=== PATIENT | male | born 1955 | race Hispanic/Latino ===

== ENCOUNTER 2018-12-18 00:03 | Inpatient (IN) | payer MEDICAID, OTHER ==
[2018-12-18 00:46] LABS: #Basophils 0.1 thou/uL (0.0-0.2); #Eosinphils 0.1 thou/uL (0.0-0.7); #Lymphocytes 0.6 thou/uL (1.20-3.40); #Monocytes 0.2 thou/uL (0.11-0.59); #Neutrophils 7.5 thou/uL (1.40-6.50); %Basophils 0.6 % (0.0-1.0); %Eosinophils 1.1 % (0.0-10.0); %Lymphocytes 6.8 % (21.0-51.0); %Monocytes 2.8 % (0.0-10.0); %Neutrophils 88.7 % (42.0-75.0); Hemoglobin 16.1 g/dL (14.0-18.0); Mean Corpuscular HGB CONC 33.5 g/dL (32.0-36.0); Mean Corpuscular Hemoglobin 32.2 pg (27.0-31.0); Mean Corpuscular Volume 96.2 fL (78.0-98.0); Mean Platelet Volume 6.5 fL (7.4-10.4); Platelet Count 341 thou/uL (130-400); RBC Distribution Width 11.8 % (11.5-14.5); Red Blood Cell (RBC) Count 4.99 mill/uL (4.70-6.10); White Blood Cell (WBC) Count 8.4 thou/uL (4.8-10.8)
[2018-12-18] MEDS ORDERED: Morphine 4 MG/ML VIAL ONE (01:10)
[2018-12-18] MEDS ORDERED: Ondansetron PF 4 MG/2 ML Vial ONE (01:10)
[2018-12-18 01:16] LABS: ALT (SGPT) 19 U/L (8-55); AST (SGOT) 16 U/L (5-34); Acetaminophen Less than 6.0 mcg/mL (10.0-30.0); Albumin 4.3 g/dL (3.4-4.8); Alcohol Less than 10 mg/dL (Less than 10); Alkaline Phosphatase 78 U/L (40-150); Anion Gap 19 mmol/L (10-20); BUN (Urea Nitrogen) 23 mg/dL (8.4-25.7); Bilirubin, Total 0.6 mg/dL (0.2-1.2); Calc. Creatinine Clearance 0 mL/min (70-130); Carbon Dioxide 16 mmol/L (23-31); Chloride 95 mmol/L (98-107); Estimated GFR-MDRD 45; Globulin 2.4 g/dL (2.4-3.5); Glucose 181 mg/dL (80-115); Magnesium 2.1 mg/dL (1.6-2.6); Potassium 4.1 mmol/L (3.5-5.1); Protein, Total 6.7 g/dL (5.8-8.1); Salicylate Less than 8.0 mg/dL (15.0-30.0); Sodium 126 mmol/L (136-145)
[2018-12-18] MEDS ORDERED: Piperacillin/Tazobactam 3.375 GM VIAL ONE (02:17)
[2018-12-18] MEDS ORDERED: Fentanyl 100 MCG/2 ML VIAL ONE ×3 (03:33→05:10)
[2018-12-18] MEDS ORDERED: Midazolam HCl 2 mg/2 ml Vial ONE (03:33)
--- NOTE | 2018-12-18 04:04 | HP ---
CHIEF COMPLAINT: Abdominal pain. HISTORY OF PRESENT ILLNESS: This is a 63-year-old male with bipolar schizophrenia, in the care of his niece, recently moved here in a month or two from [place] with sudden onset of epigastric pain approximately at 9:00 p.m. after eating dinner, associated with nausea and no vomiting. PAST MEDICAL HISTORY: Significant for bipolar and schizophrenia. PAST SURGICAL HISTORY: None. MEDICATIONS: 1. Citalopram. 2. . 3. Hydroxyzine. ALLERGIES: NO KNOWN DRUG ALLERGIES. SOCIAL HISTORY: He lives with his niece, who is an RN. He smokes one-half pack per day. No alcohol. FAMILY HISTORY: Diabetes and hypertension. PHYSICAL EXAMINATION: VITAL SIGNS: He is afebrile. Pulse 107, blood pressure 144/63. GENERAL: Obese male, sitting up. HEENT: No jaundice. LUNGS: Clear. HEART: Regular rate and rhythm. ABDOMEN: Obese, soft, somewhat distended. He is very tender in the central and upper abdomen with peritoneal signs. EXTREMITIES: Unremarkable. LABORATORY DATA: White count is 8.4, H and H are 16 and 48, platelet count 341. Electrolytes show sodium 126, potassium 4.1, chloride 95, creatinine 1.57, glucose 181. Liver function tests are normal. He had a CT scan of the abdomen showing extensive free air with inflammation of the duodenal bulb consistent with possible perforated ulcer, but he also has some thickening of the small bowel loops. ASSESSMENT: Perforated viscus. PLAN: Exploratory laparotomy. Job ID: [id number]
[2018-12-18] MEDS ORDERED: PHENYLEPHRINE-NS 100 MCG/ML 10 ML SYRINGE ONE ×2 (04:05→14:52)
[2018-12-18] MEDS ORDERED: Phenylephrine HCL 40 MG in Sodium Chloride 0.9% 250 ML 250 ML IV SCH (04:30)
[2018-12-18] MEDS ORDERED: SUGAMMADEX SODIUM 200 MG/2 ML VIAL ONE (04:48)
[2018-12-18] MEDS ORDERED: Morphine 4 MG/ML VIAL SLOW IVP PRN (04:56)
[2018-12-18] MEDS ORDERED: Insulin Regular 300 UNITS/3 ML VIAL SC PRN (04:56)
[2018-12-18] MEDS ORDERED: Dextrose 50% Abboject 50 ML SYRINGE SLOW IVP PRN (04:56)
[2018-12-18] MEDS ORDERED: Ondansetron PF 4 MG/2 ML Vial IVP PRN (04:56)
[2018-12-18] MEDS ORDERED: Promethazine HCl 25 MG/ML VIAL IM PRN ×2 (04:56→05:04)
[2018-12-18] MEDS ORDERED: hydrALAZINE 20 MG/ML VIAL SLOW IVP PRN (04:56)
[2018-12-18] MEDS ORDERED: Ondansetron HCl/PF 4 MG/2 ML Vial IVP PRN (05:04)
[2018-12-18] MEDS ORDERED: Promethazine HCl 25 MG/ML VIAL SLOW IVP PRN (05:04)
[2018-12-18 06:24] VITALS: BMI 32.3
[2018-12-18] MEDS: Sodium Chloride 0.9% 1,000 ML IV SCH ×5 (06:45→21:01)
[2018-12-18] MEDS: Piperacillin/Tazobactam 3.375 GM in Sodium Chloride 0.9% 100 ML IVPB SCH ×4 (06:48→23:58)
--- NOTE | 2018-12-18 07:06 | RAD ---
SINGLE VIEW CHEST: HISTORY: Shortness of breath. FINDINGS: Single view of the chest show normal sized cardiomediastinal silhouette. There is no evidence of cons olidation, mass, or pleural effusion. The bones are unremarkable. IMPRESSION: No evidence of acute cardiopulmonary disease. POS: C
[2018-12-18] MEDS: metroNIDAZOLE 500 MG in Premix Bag 1 BAG IVPB SCH ×3 (07:12→21:00)
[2018-12-18 07:49] LABS: Hemoglobin 14.2 g/dL (14.0-18.0); Mean Corpuscular Hemoglobin 31.8 pg (27.0-31.0); Mean Corpuscular Volume 99.6 fL (78.0-98.0); Mean Platelet Volume 6.4 fL (7.4-10.4); Platelet Count 279 thou/uL (130-400); Red Blood Cell (RBC) Count 4.45 mill/uL (4.70-6.10); White Blood Cell (WBC) Count 1.9 thou/uL (4.8-10.8)
[2018-12-18 08:07] LABS: Anion Gap 14 mmol/L (10-20); BUN (Urea Nitrogen) 27 mg/dL (8.4-25.7); Calc. Creatinine Clearance 62 mL/min (70-130); Calcium 8.3 mg/dL (7.8-10.44); Carbon Dioxide 13 mmol/L (23-31); Chloride 104 mmol/L (98-107); Estimated GFR-MDRD 45; Glucose 99 mg/dL (80-115); Potassium 5.4 mmol/L (3.5-5.1); Sodium 126 mmol/L (136-145)
[2018-12-18 08:32] LABS: Band 46 % (5-11); Lymphocytes 36 % (21-51); MDiff Complete? YES; Monocytes 2 % (0-10); Neutrophil 16 % (42-75); Nucleated RBC 1 % (0); Platelet Morphology Comment Appears Adequate; Polychromasia SLIGHT = 2-3 cells (100X) (0-2/hpf); Reflex for Review?? YES
--- NOTE | 2018-12-18 08:49 | CON ---
DATE OF CONSULTATION: HISTORY OF PRESENT ILLNESS: A 63-year-old gentleman, unable to get much history, came to the ER yesterday with abdominal pain. He apparently walks in the hospital earlier and give history stating that having pain for a period of time. He has underlying bipolar, schizophrenic disorder. He is also apparently mentally retarded. He was found to have acute abdomen. He was taken to surgery last night by General Surgery and found to have a pneumoperitoneum, perforated peptic ulcer. Appropriate surgical intervention was done. He is now postop in the ICU, off vent. Denies any pain or discomfort and whatever little information we get, he clearly appears to be in no acute distress. PAST MEDICAL HISTORY: Bipolar, schizophrenia, mental retardation. PAST SURGICAL HISTORY: Previous surgeries, unknown. MEDICATIONS: Chronic medication apparently has included; 1. Citalopram 40 once a day. 2. Benztropine 2 mg 2 times a day. 3. Hydroxyzine 10 mg twice a day. ALLERGIES: NONE. SOCIAL HISTORY: Tobacco unknown. REVIEW OF SYSTEMS: Unremarkable. PHYSICAL EXAMINATION: VITAL SIGNS: Sats are 90% on room air, temperature 97, blood pressure , and respiratory rate 18. CHEST: Revealed no wheezing or crackles. CARDIAC: Normal S1 and S2. No gallops. ABDOMEN: No masses. LABORATORY STUDIES: White count 1.9, H and H 14 and 44, and platelet count is normal. BUN and creatinine are 27 and 1.58, sodium 126. TSH is full. Albumin is 4.3. ASSESSMENT: 1. Status post perforated peptic ulcer, status post lap. 2. Azotemia. 3. Electrolyte imbalance. 4. Bipolar, schizophrenia, mental retardation. PLAN: Continue normal saline 125 per hour, broad-spectrum antibiotics initiated, Zosyn and culture report. We will follow while in the ICU. Consultation note, 70 minutes, 50% direct patient care. Job ID: [id number]
[2018-12-18] MEDS ORDERED: Famotidine/PF 20 mg/2ml Vial SLOW IVP SCH (09:00)
[2018-12-18] MEDS ORDERED: Pantoprazole 40 MG VIAL IVP SCH (09:00)
--- NOTE | 2018-12-18 09:26 | CT ---
PRELIMINARY REPORT/[facility]/EMERGENTY AFTER-HOURS PROCEDURE CT Abdomen and Pelvis With Contrast EXAM DATE/TIME: 12/18/2018 1:48 AM CLINICAL HISTORY: 63 years old, male; Pain; Abdominal pain; Patient HX: Er 3; PT family called them due SOB. Ems report s PT running tachy. PT has been complaining of abdominal pain (generalized) today. Denies any vomit. States he has been running back and forth to the bathroom . ; additional info: *pt combative for scan TECHNIQUE: Axial computed tomography images of the abdomen and pelvis with intravenous contrast. Coronal reforma tted images were created and reviewed. COMPARISON: No relevant prior studies available. FINDINGS: Lower thorax: No acute findings. ABDOMEN: Liver: Normal. No mass. Gallbladder and bile ducts: Normal. No calcified stones. No ductal dilation. Pancreas: Normal. No ductal dilation. Spleen: Normal. No splenomegaly. Adrenals: Normal. No mass. Kidneys and ureters: Right renal cyst. Kidneys otherwise unremarkable. Stomach and bowel: Inflammatory thickening of the wall of the stomach and duodenal bulb, consistent w ith gastritis and proximal duodenitis. Focus of gas at the periphery of the pylorus may be extralumin al and raises the possibility of perforated duodenal ulcer. Mildly prominent lymph node adjacent to the duodenal bulb may also support the presence of a chronic ulcer. Diffuse inflammatory thickening of the wall of the jejunum and ileum, consistent with enteritis. Colon is unremarkable. Appendix: Normal appendix. PELVIS: Bladder: Unremarkable as visualized. Reproductive: Unremarkable as visualized. ABDOMEN and PELVIS: Intraperitoneal space: Large volume free nondependent pneumoperitoneum compatible perforated viscus. Moderate volume ascites. No pneumoperitoneum or abscess. Bones/joints: No acute fracture. No dislocation. Soft tissues: Unremarkable. Vasculature: No pneumatosis or portal/mesenteric venous gas. SMV and SMA are patent as far as can be traced. Lymph nodes: See Stomach And Bowel Finding. Other findings: 2.6 cm AAA. No rupture. IMPRESSION: 1. Large volume free nondependent pneumoperitoneum compatible with perforated viscus. 2. Inflammatory thickening of the wall of the stomach and duodenal bulb, consistent with gastritis an d proximal duodenitis. Focus of gas at the periphery of the pylorus may be extraluminal and raises th e possibility of perforated duodenal ulcer. Mildly prominent lymph node adjacent to the duodenal bulb may also support the presence of a chronic ulcer. 3. Diffuse inflammatory thickening of the wall of the jejunum and ileum, consistent with enteritis. 4. Moderate volume ascites. Findings discussed with WALKER CASILLAS MD at time of interpretation. Thank you for allowing us to participate in the care of your patient. Dictated and Authenticated by: Albino Masters MD 12/18/2018 2:40 AM Central Time ([place] & [place]) FINAL REPORT EMERGENT AFTER HOURS CT ABDOMEN AND PELVIS WITH CONTRAST: FINDINGS/IMPRESSION: I agree with the findings and impression given in the preliminary report, per [facility] physician. There is a moderate amount of free air and free fluid in the abdomen and pelvis. This is suggestive of a perforated discus. The exact cause of the perforation is uncertain. However, there is thickeni ng of the wall of the stomach and jejunum. In addition, bubbles of air are seen near the duodenum. A perforated duodenal or gastric ulcer is a possibility.
--- NOTE | 2018-12-18 09:28 | CT ---
PRELIMINARY REPORT/[facility]/EMERGENTY AFTER-HOURS PROCEDURE Addendum created by Albino Masters MD on 12/18/2018 2:51 AM Central Time ([place] & [place]) Findings discu ssed with WALKER CASILLAS MD at time of interpretation. Initial Report created on 12/18/2018 2:24 AM Central Time ([place] & [place]) EXAM: CT Angiography Chest With Contrast EXAM DATE/TIME: 12/18/2018 1:48 AM CLINICAL HISTORY: 63 years old, male; Signs and symptoms; Shortness of breath; Patient HX: Er 3; PT family called them due SOB. PT has history of schizophrenia. Unable to obtain history from patient at this time. Ems rep orts PT running tachy TECHNIQUE: Axial computed tomographic angiography images of the chest with intravenous contrast using CT angiogr aphy protocol. MIP reconstructed images were created and reviewed. COMPARISON: No relevant prior studies available. FINDINGS: Pulmonary arteries: Normal. No pulmonary emboli. Aorta: Normal. No aortic aneurysm. No aortic dissection. Lungs: Normal. No consolidation. No masses. Pleural space: Normal. No pneumothorax. No pleural effusion. Heart: Trace pericardial effusion. Kidneys and ureters: Right renal cyst. Stomach and bowel: There is inflammatory thickening of the wall of the distal stomach and visualized portion of the duodenal bulb, compatible with gastritis and duodenitis and, in the setting of pneumop eritoneum, suspicious for the possibility of a perforated pyloric or duodenal ulcer. Intraperitoneal space: Incompletely visualized large volume pneumoperitoneum. Incompletely visualized at least moderate volume ascites. Lymph nodes: Unremarkable. No enlarged lymph nodes. Bones/joints: Unremarkable. No acute fracture. Soft tissues: Unremarkable. IMPRESSION: 1. Incompletely visualized large volume pneumoperitoneum indicating perforated viscus. 2. There is inflammatory thickening of the wall of the distal stomach and visualized portion of the d uodenal bulb, compatible with gastritis and duodenitis and, in the setting of pneumoperitoneum, suspicious for the possibility of a perforated pyloric or duodenal ulcer.. 3. Incompletely visualized at least moderate volume ascites. 4. Trace pericardial effusion. Thank you for allowing us to participate in the care of your patient. Dictated and Authenticated by: Albino Masters MD 12/18/2018 2:24 AM Central Time ([place] & [place]) FINAL REPORT EMERGENT AFTER HOURS CTA CHEST: TECHNIQUE: Multiple contiguous axial images were obtained in a CTA of the chest with contrast, per pulmonary emb olism protocol, and 3D oblique MIP reformats and direct coronal reformats were performed. FINDINGS/IMPRESSION: I agree with the findings and impression given in the preliminary report, per [facility] physician: 1. No evidence of pulmonary thromboembolism. 2. Pneumoperitoneum. Please see abdominal CT for further discussion.
--- NOTE | 2018-12-18 09:35 | OP ---
DATE OF PROCEDURE: 12/18/2018 PREOPERATIVE DIAGNOSIS: Perforated viscus. PROCEDURES PERFORMED: Exploratory laparotomy, closure of duodenal ulcer with omental patch, and lysis of adhesions. INDICATIONS: A 63-year-old male with schizophrenia and bipolar, who was doing fine until about 9 p.m. when he had developed severe upper abdominal pain nausea, no vomiting. He had a CT scan showing extensive free air, some thickened small bowel, possible air near the duodenum. FINDINGS: 1500 mL of purulent peritoneal fluid, 1.5 cm perforated duodenal ulcer anterior and slightly superior. DESCRIPTION OF PROCEDURE: After informed consent from his niece who had power of managing attorney, the patient was taken to the operating room and given general endotracheal anesthesia, placed in supine position. Abdomen was prepped and draped in the usual fashion. An upper midline incision was performed. Subcu was divided sharply and the fascia incised with a 10 blade. The abdomen was full of purulent peritoneal fluid, 1500 mL of this cloudy peritoneal fluid was removed with the pool sucker, after cultures were obtained, then the abdomen was explored. The colon looked fine. Small bowel did not appear to be inflamed. The stomach was inspected, and in compressing the stomach, we can see the additional fluid coming out, and then looking at the duodenum, there was a large 1.5 cm perforation anterior and superior. This perforation was closed transversely with interrupted 0 Vicryl suture. Then, the abdomen was thoroughly irrigated. There were couple of band adhesions that had to be lysed for potential small bowel obstructions in the future, 6 L of fluid used to completely irrigate the abdominal cavity, irrigation fluid removed, hemostasis assured, then the omentum was taken up to the repair and tied down with the sutures that were already in place to create a patch. Then, the NG tube was confirmed. The fascia was closed with a running looped #1 PDS. The subcu irrigated. The skin was closed with skin donita. Sterile bandage applied. The patient tolerated the procedure well and transferred to Recovery in fair condition. Job ID: [id number]
[2018-12-18] MEDS ORDERED: Haloperidol Lactate 5 MG/ML VIAL SLOW IVP PRN (09:45)
[2018-12-18 09:51] LABS: Hemoglobin 13.7 g/dL (14.0-18.0)
[2018-12-18] MEDS ORDERED: ISOVUE-370 76%-LOCM 1 ML ONE (09:57)
[2018-12-18] MEDS ORDERED: Sodium Chloride 0.9% 1,000 ML IV SCH ×2 (10:15→11:45)
--- NOTE | 2018-12-18 10:31 | CON ---
DATE OF CONSULTATION: ATTENDING PHYSICIAN: Dawood Bishop M.D. REASON FOR ADMISSION: Severe abdominal pain and perforated viscus. REASON FOR CONSULTATION: For the aid in medical management. HISTORY OF PRESENT ILLNESS: Mr. Latham is a pleasant 63-year-old gentleman who has fairly severe mental retardation. He was admitted to the hospital after he developed a sudden episode of severe epigastric pain after eating dinner. He was brought to the emergency room and had a CT scan performed and it was found that he had significant pneumoperitoneum and some thickening of the stomach as well as the small bowel. General Surgery was consulted and the patient underwent an emergent exploratory laparotomy. It was found that he had a duodenal ulcer with perforation. He has undergone laparoscopic closure of the duodenal ulcer with an omental patch as well as some lysis of adhesions. He has been placed in the ICU and we have been consulted to aid in medical management. Currently, the patient is awake. He has an NG tube in place. He denies having any significant complaints. When asked, if he is having abdominal pain, he says the pain is better. There is no nausea, no vomiting. No chest pain or shortness of breath. REVIEW OF SYSTEMS: All systems were reviewed and are negative except for that mentioned in the history of present illness. PAST MEDICAL HISTORY: Significant for schizophrenia and bipolar disorder as well as mental retardation. PAST SURGICAL HISTORY: Unknown. ALLERGIES: NO KNOWN DRUG ALLERGIES. FAMILY HISTORY: Significant for diabetes mellitus and hypertension. SOCIAL HISTORY: He lives with his niece, who is a an RN here at [facility]. He is a nondrinker. He it is reported he smokes about a half a pack of cigarettes daily. CURRENT MEDICATIONS: Include: 1. Citalopram 40 mg daily. 2. Benztropine 2 mg daily. 3. Hydroxyzine 10 mg twice daily. 4. Invega 117 mg IM every 30 days. PHYSICAL EXAMINATION: GENERAL: He is alert and oriented. He is well developed and well nourished, and does not appear to be in any distress. VITAL SIGNS: Blood pressure was 92/52, heart rate 106, respiratory rate is 16. He is afebrile. HEENT: Pupils are equal, round, and reactive. Extraocular muscles are intact. His sclerae are anicteric. THROAT: There was no erythema. No exudates. NECK: No adenopathy, no bruits. Lungs: Clear to auscultation. There is no wheezing, no rales no rhonchi CARDIOVASCULAR: Heart rate slightly tachycardic, but regular. No murmurs, clicks or rubs. ABDOMEN: Obese. It is slightly distended. It is nontender to palpation and there is no rebound or guarding. No organomegaly. EXTREMITIES: There is no clubbing, cyanosis, no edema. NEUROLOGIC: The exam is nonfocal. LABORATORY DATA: His white blood cell count today is 1.9, hemoglobin 14.2, hematocrit is 44.3, and platelet count is 279, Neutrophils are currently pending. He has 46 bands. Sodium is 126, potassium is 5.4, CO2 is 13, BUN of 27, creatinine 1.58, glucose is 99. IMAGING: As previously mentioned, CT scan of the abdomen demonstrated pneumoperitoneum. He also had a CT angiogram of the chest, which was negative for PE. ASSESSMENT: This is a 63-year-old gentleman who presents with severe abdominal pain and was found to have a perforated duodenal ulcer. He is status post exploratory laparotomy with repair of a duodenal ulcer with an omental patch. Currently, the patient is awake and has few complaints. His abdominal pain appears to be controlled. With regard for medical management: 1. Schizophrenia and bipolar disorder. Currently the patient is n.p.o., so therefore his typical oral medications will be held. We will continue his Depo shot of Invega every 30 days and have p.r.n. Haldol and lorazepam available as needed. 2. Hyponatremia. This could be due to low volume or volume depletion. We will see, if this corrects with saline administration. If not, then we will get urine studies to help us differentiate the cause of the hyponatremia. 3. Duodenal ulcer. We will continue the Protonix b.i.d. Monitor his hemoglobin and hematocrit and consider gastrointestinal consultation. Given his history of bleeding, we will hold off on any deep venous thrombosis prophylaxis other than sequential compression devices. Job ID: [id number]
[2018-12-18] MEDS ORDERED: Norepinephrine 8 MG/250 ML BAG IVPB PRN (11:33)
[2018-12-18] MEDS: Pantoprazole 80 MG in Sodium Chloride 0.9% 100 ML IVP SCH (12:34)
[2018-12-18] MEDS ORDERED: Albumin 25% 25 GM/100 ML BOT IVPB SCH (13:00)
[2018-12-18] MEDS ORDERED: Lidocaine 1% PF 5 ML VIAL ONE (14:52)
[2018-12-18] MEDS ORDERED: Rocuronium Bromide 10 MG/ML (10ML VIAL) ONE (14:52)
[2018-12-18] MEDS ORDERED: Succinylcholine Chloride 20 MG/ML 10 ml SYRINGE FS ONE (14:52)
[2018-12-18] MEDS ORDERED: ePHEDrine 50 MG/ML VIAL ONE (14:52)
[2018-12-18] MEDS ORDERED: Glycopyrrolate 0.2 MG/ML 5 ML SYRINGE ONE (14:52)
[2018-12-18] MEDS: Enoxaparin Sodium 40 MG/0.4 ML SYRINGE SC SCH (21:01)
[2018-12-19] MEDS: Pantoprazole 80 MG in Sodium Chloride 0.9% 100 ML IVP SCH ×3 (00:01→20:04)
[2018-12-19] MEDS: Dextrose 5% in Water 1,000 ML IV PRN ×2 (00:07→18:26)
[2018-12-19 04:08] LABS: #Lymphocytes 0.6 thou/uL (1.20-3.40); #Monocytes 0.5 thou/uL (0.11-0.59); #Neutrophils 4.8 thou/uL (1.40-6.50); %Basophils 0.5 % (0.0-1.0); %Eosinophils 0.2 % (0.0-10.0); %Lymphocytes 9.8 % (21.0-51.0); %Monocytes 8.1 % (0.0-10.0); %Neutrophils 81.4 % (42.0-75.0); Hemoglobin 11.9 g/dL (14.0-18.0); Mean Corpuscular HGB CONC 32.9 g/dL (32.0-36.0); Mean Corpuscular Volume 97.4 fL (78.0-98.0); Mean Platelet Volume 6.5 fL (7.4-10.4); Platelet Count 244 thou/uL (130-400); Red Blood Cell (RBC) Count 3.72 mill/uL (4.70-6.10); White Blood Cell (WBC) Count 5.8 thou/uL (4.8-10.8)
[2018-12-19 04:34] LABS: ALT (SGPT) 28 U/L (8-55); AST (SGOT) 81 U/L (5-34); Albumin 3.4 g/dL (3.4-4.8); Alkaline Phosphatase 36 U/L (40-150); Anion Gap 8 mmol/L (10-20); BUN (Urea Nitrogen) 30 mg/dL (8.4-25.7); Bilirubin, Total 0.7 mg/dL (0.2-1.2); Calc. Creatinine Clearance 79 mL/min (70-130); Calcium 8.5 mg/dL (7.8-10.44); Carbon Dioxide 19 mmol/L (23-31); Chloride 109 mmol/L (98-107); Estimated GFR-MDRD 59; Globulin 1.9 g/dL (2.4-3.5); Glucose 87 mg/dL (80-115); Potassium 4.3 mmol/L (3.5-5.1); Protein, Total 5.3 g/dL (5.8-8.1); Sodium 132 mmol/L (136-145)
[2018-12-19] MEDS: Piperacillin/Tazobactam 3.375 GM in Sodium Chloride 0.9% 100 ML IVPB SCH ×4 (05:16→23:18)
[2018-12-19] MEDS: metroNIDAZOLE 500 MG in Premix Bag 1 BAG IVPB SCH ×3 (05:17→21:03)
[2018-12-19] MEDS: Sodium Chloride 0.9% 1,000 ML IV SCH ×4 (05:20→23:17)
--- NOTE | 2018-12-19 08:02 | PRG ---
DATE OF SERVICE: 12/19/2018 SUBJECTIVE: Mario Latham this morning is awake, alert, and responsive. He is less confused, less short of breath, less pain. Denies pain or discomfort. OBJECTIVE: VITAL SIGNS: Sats are 95% on 2 L, blood pressure is 149/71, respiratory rate 18, and pulse 80. CHEST: Decreased breath sounds. No wheezing. CARDIAC: Normal S1 and S2. No gallops. ABDOMEN: No masses. LABORATORY DATA: His creatinine is 1.24, decreased; sodium 132. White count 5000. Lytes are normal. IMPRESSION: 1. Status post lap, perforated viscus. 2. Hypertension, resolved. 3. Mental retardation. PLAN: Continue antibiotics. All cultures so far negative. Disposition as per Surgery. Job ID: [id number]
--- NOTE | 2018-12-19 09:31 | PRG ---
DATE OF SERVICE: 12/19/2018 SUBJECTIVE: The patient is feeling much better today. He is awake and hemodynamically, he is much more stable. He has required no further fluid boluses. OBJECTIVE: GENERAL: On examination, he is awake, alert, watching television, in no apparent distress. NG tube is in place, it has put out only about 60 mL of fluid. VITAL SIGNS: His temperature is 98, pulse 97, blood pressure 143/90, looks good. ABDOMEN: Soft and nondistended. Dressing is okay. : His urine output is 1470 for 24 hours. LABORATORY DATA: His white count 5.8, H and H of 11 and 36, and platelet count of 244. Electrolytes show BUN 30 and creatinine 1.24. ASSESSMENT: Doing well. PLAN: Transfer to the floor. Job ID: [id number]
[2018-12-19] MEDS ORDERED: MD-Gastroview 120 ML BOT ONE (10:16)
[2018-12-19] MEDS ORDERED: Labetalol HCl 100 MG/20 ML VIAL SLOW IVP PRN (11:20)
--- NOTE | 2018-12-19 11:31 | PDOC.PN ---
- Subjective Encounter Start Date: 12/19/18 Encounter Start Time: 11:29 Mr. Latham was seen today in follow-up of perforated duodenal ulcer. He is back from the upper GI series. He denies abdominal pain. He denies feeling nauseated. - Objective MAR Reviewed: Yes Vital Signs & Weight: Vital Signs (12 hours) Temp Pulse Ox 12/19/18 07:59 98.0 F 12/19/18 07:35 100 12/19/18 04:00 98.7 F 12/19/18 00:00 99.2 F Weight Weight 200 lb 6.403 oz Most Recent Monitor Data Heart Rate from ECG 105 NIBP 173/132 NIBP BP-Mean 145 Respiration from ECG 22 SpO2 100 I&O: 12/18/18 12/19/18 12/20/18 06:59 06:59 06:59 Intake Total 5808.1 0 Output Total 1770 435 Balance 4038.1 -435 Result Diagrams: 12/19/18 04:04 12/19/18 04:04 Additional Labs: Accuchecks 12/19/18 12/19/18 12/19/18 09:22 04:01 02:03 POC Glucose 85 96 89 12/19/18 12/18/18 12/18/18 00:04 22:10 15:57 POC Glucose 55 L* 65 L 62 L Phys Exam - Physical Examination HEENT: PERRLA Respiratory: no wheezing, no rales, no rhonchi, clear to auscultation bilateral Cardiovascular: RRR, no significant murmur, no rub Gastrointestinal: soft, non-tender, positive bowel sounds mildly distended Musculoskeletal: no edema, pulses present Dx/Plan (1) Schizophrenia Code(s): F20.9 - SCHIZOPHRENIA, UNSPECIFIED Status: Chronic (2) Elevated blood pressure reading Code(s): R03.0 - ELEVATED BLOOD-PRESSURE READING, W/O DIAGNOSIS OF HTN Status : Acute (3) Bipolar disorder Code(s): F31.9 - BIPOLAR DISORDER, UNSPECIFIED Status: Chronic (4) Duodenal ulcer with perforation Code(s): K26.5 - CHRONIC OR UNSPECIFIED DUODENAL ULCER WITH PERFORATION Status : Acute - Plan * Schizophrenia and Bipolar disorder- will re-start his home medications * Elevated blood pressure- will place him on PRN medications * Duodenal Ulcer with perforation- continue Protonix drip will in the ICU- change to BID once on the floor
--- NOTE | 2018-12-19 11:54 | RAD ---
GASTROGRAFFIN UPPER GI: HISTORY: Perforated duodenal ulcer, status post surgery. Evaluate for leak. COMPARISON: None. FINDINGS: The initial police cadet supine radiograph demonstrates midline skin donita. The nasogastric tube is in th e stomach. Nonspecific bowel gas pattern. The patient was administered a total of 50 mL of Gastrografin contrast. An additional 10 mL of steri le saline was administered, to flush out the Gastrografin in the NG tube. There is no evidence of le ak or perforation. IMPRESSION: No radiographic evidence of leak or perforation. POS: YESSICA
[2018-12-19] MEDS ORDERED: PALIPERIDONE PALMITATE 117 MG IM SCH (12:00)
[2018-12-19] MEDS: hydrALAZINE 20 MG/ML VIAL SLOW IVP PRN (12:02)
[2018-12-19] MEDS: hydrOXYzine 10 MG TAB PO SCH (20:04)
[2018-12-19] MEDS: Benztropine 1 MG TAB PO SCH (20:04)
[2018-12-19] MEDS: Enoxaparin Sodium 40 MG/0.4 ML SYRINGE SC SCH (20:05)
[2018-12-20] MEDS: Piperacillin/Tazobactam 3.375 GM in Sodium Chloride 0.9% 100 ML IVPB SCH ×4 (05:43→22:52)
[2018-12-20] MEDS: Sodium Chloride 0.9% 1,000 ML IV SCH ×4 (05:43→22:18)
[2018-12-20] MEDS: metroNIDAZOLE 500 MG in Premix Bag 1 BAG IVPB SCH ×3 (05:44→20:30)
[2018-12-20] MEDS: Citalopram 20 MG TAB PO SCH (07:49)
[2018-12-20] MEDS: hydrALAZINE 20 MG/ML VIAL SLOW IVP PRN (07:49)
--- NOTE | 2018-12-20 08:03 | PRG ---
DATE OF SERVICE: 12/20/2018 SUBJECTIVE: The patient states he is hungry, has not passed anything out of his bottom. OBJECTIVE: VITAL SIGNS: His temperature is 98.2, pulse 98, blood pressure 173/69. GENERAL: He is awake, alert. His wound is clean and dry. His abdomen is soft, nontender. ASSESSMENT: Doing well. PLAN: 1. Discontinue Patterson. 2. Clear liquid diet. 3. Ambulation with physical therapy. Job ID: [id number]
[2018-12-20] MEDS: Pantoprazole 80 MG in Sodium Chloride 0.9% 100 ML IVP SCH (08:56)
[2018-12-20] MEDS: Benztropine 1 MG TAB PO SCH ×2 (08:56→20:29)
[2018-12-20] MEDS: hydrOXYzine 10 MG TAB PO SCH ×2 (08:56→20:29)
--- NOTE | 2018-12-20 13:25 | PQF ---
NANNETTE SHEN DR. [id number] SURG A- [id number] CLINICAL DOCUMENTATION IMPROVEMENT CLARIFICATION FORM: ICD-10 Updated PLEASE DO AN ADDENDUM TO THE PROGRESS NOTE WITH ANY DOCUMENTATION UPDATES OR ADDITIONS AND CARRY THROUGH TO DC SUMMARY. THANK YOU. DATE: 12/20/2018 /12-21-18 ATTN: DR. Mikki CROSS / DR. AGUILAR Please exercise your independent, professional judgment in responding to the clarification form. Clinical indicators are provided on the bottom of this form for your review. Please check appropriate box(s): [ ] Acute Renal Failure (ARF) / Acute Kidney Injury (ZHANNA) [ ] Other Etiology or underlying conditions related to the diagnosis of ARF/ ZHANNA: [ ] Other: [ ] Acute on Chronic Renal Failure please specify Stage of CKD (see below) [ ] CKD without ARF/ZHANNA please specify Stage of CKD [ ] Other diagnosis [ ] Unable to determine In addition, please specify: Present on Admission (POA): [ ] Yes [ ] No [ ] Unable to determine For continuity of documentation, please document condition throughout progress notes and discharge summary. Thank You. CLINICAL INDICATORS - SIGNS / SYMPTOMS / LABS 12/18 -12/19) BUN : 23, 27, 30 CREAT: 1.57, 1.58, 1.24 12/18 PN (TAY) ASSESSMENT/PLAN: 2). HYPONATREMIA. THIS COULD BE DUE TO LOW VOLUME DEPLETION. RISK: PERFORATED DUODENAL ULCER TREATMENTS: NS (12/18- PRESENT) THANK YOU! FER (This form is maintained as a part of the permanent medical record) 2014 [employer] All Rights Reserved SANTIAGO [email or web address] [phone] I never saw this patient - Geovanni GUERRERO
[2018-12-20] MEDS: Acetaminophen 325 MG TAB PO PRN ×2 (14:16→22:52)
[2018-12-20] MEDS: Nicotine 14 MG PATCH TD SCH (14:17)
--- NOTE | 2018-12-20 16:30 | PDOC.PN ---
- Subjective Encounter Start Date: 12/20/18 Encounter Start Time: 16:29 Mr. Latham was seen today in follow-up of Duodenal ulcer with perforation. He does not have any complaints today. - Objective MAR Reviewed: Yes Vital Signs & Weight: Vital Signs (12 hours) Temp Pulse Resp BP BP Pulse Ox 12/20/18 15:36 98.2 F 99 22 H 155/81 H 97 12/20/18 12:57 171/100 H 12/20/18 11:00 98.1 F 101 H 22 H 185/93 H 96 12/20/18 07:49 100 193/92 H 12/20/18 07:26 97.6 F 99 20 193/92 H 100 12/20/18 04:36 98.2 F 98 18 173/69 H 97 Weight Weight 200 lb 6.403 oz Most Recent Monitor Data Heart Rate from ECG 90 NIBP 149/90 NIBP BP-Mean 145 Respiration from ECG 16 SpO2 97 I&O: 12/19/18 12/20/18 12/21/18 06:59 06:59 06:59 Intake Total 5808.1 1850 Output Total 1770 1810 Balance 4038.1 40 Result Diagrams: 12/19/18 04:04 12/19/18 04:04 Additional Labs: Accuchecks 12/20/18 12/20/18 12/20/18 15:13 11:03 06:04 POC Glucose 81 65 L 154 H 12/19/18 12/19/18 12/19/18 23:46 18:39 17:54 POC Glucose 110 112 H 55 L* Phys Exam - Physical Examination HEENT: PERRLA Respiratory: no wheezing, no rales, no rhonchi, clear to auscultation bilateral Cardiovascular: RRR, no significant murmur, no rub Gastrointestinal: soft, non-tender, no distention, positive bowel sounds Musculoskeletal: no edema, pulses present Dx/Plan (1) Schizophrenia Code(s): F20.9 - SCHIZOPHRENIA, UNSPECIFIED Status: Chronic (2) Elevated blood pressure reading Code(s): R03.0 - ELEVATED BLOOD-PRESSURE READING, W/O DIAGNOSIS OF HTN Status : Acute (3) Bipolar disorder Code(s): F31.9 - BIPOLAR DISORDER, UNSPECIFIED Status: Chronic (4) Duodenal ulcer with perforation Code(s): K26.5 - CHRONIC OR UNSPECIFIED DUODENAL ULCER WITH PERFORATION Status : Acute (5) Hypertension Code(s): I10 - ESSENTIAL (PRIMARY) HYPERTENSION Status: Acute - Plan * Schizophrenia and Bipolar disorder- his medications have been re-started * HTN- his blood pressure has been consistently elevated- will diagnose as hypertension- will add Amlodipine * Perforated ulcer- he is s/p surgery for this- will change the Protonix drip to Protonix twice a day * Disposition as per Surgery team.
[2018-12-20] MEDS ORDERED: Amlodipine 5 MG TAB PO SCH (16:45)
[2018-12-20] MEDS: Enoxaparin Sodium 40 MG/0.4 ML SYRINGE SC SCH (20:29)
[2018-12-21] MEDS: Sodium Chloride 0.9% 1,000 ML IV SCH ×3 (05:41→17:13)
[2018-12-21] MEDS: Piperacillin/Tazobactam 3.375 GM in Sodium Chloride 0.9% 100 ML IVPB SCH ×3 (05:41→17:10)
[2018-12-21] MEDS: metroNIDAZOLE 500 MG in Premix Bag 1 BAG IVPB SCH ×3 (05:41→21:08)
[2018-12-21] MEDS: Acetaminophen 325 MG TAB PO PRN ×3 (05:42→12:33)
[2018-12-21] MEDS ORDERED: Amlodipine 5 MG TAB PO SCH (09:00)
[2018-12-21] MEDS: Benztropine 1 MG TAB PO SCH ×2 (09:23→21:07)
[2018-12-21] MEDS: hydrOXYzine 10 MG TAB PO SCH ×2 (09:23→21:07)
[2018-12-21] MEDS: Citalopram 20 MG TAB PO SCH (09:23)
--- NOTE | 2018-12-21 09:26 | PRG ---
DATE OF SERVICE: 12/21/2018 SUBJECTIVE: This morning, he is awake, alert, responsive, no distress. OBJECTIVE: VITAL SIGNS: Temperature is 97, pulse 96, respiratory rate 12, saturations 98% on room air, and blood pressure 155/83. CHEST: Decreased breath sounds. No wheezing. CARDIAC: Normal S1 and S2. No gallops. ABDOMEN: No masses. IMPRESSION: 1. Status post lap, perforated viscus, peritonitis, tobacco abuse. 2. Mental retardation. PLAN: He appears to be relatively stable. Continue PT supportive care. Call Pulmonary if needed. Job ID: [id number]
--- NOTE | 2018-12-21 12:12 | PQF ---
NANNETTE SHEN TONI MD [id number] [facility] A- [id number] CLINICAL DOCUMENTATION IMPROVEMENT CLARIFICATION FORM: ICD-10 Updated PLEASE DO AN ADDENDUM TO THE PROGRESS NOTE WITH ANY DOCUMENTATION UPDATES OR ADDITIONS AND CARRY THROUGH TO DC SUMMARY. THANK YOU. DATE: 12/20/2018 ATTN: DR. Tatianna CROSS Please exercise your independent, professional judgment in responding to the clarification form. Clinical indicators are provided on the bottom of this form for your review. Please check appropriate box(s): [ X] Acute Renal Failure (ARF) / Acute Kidney Injury (ZHANNA) [ ] Other Etiology or underlying conditions related to the diagnosis of ARF/ ZHANNA: [ ] Acute Interstitial Nephritis (AIN) [ ] Other: [ ] Acute on Chronic Renal Failure please specify Stage of CKD (see below) [ ] CKD without ARF/ZHANNA please specify Stage of CKD [ ] Other diagnosis [ ] Unable to determine In addition, please specify: Present on Admission (POA): [ X ] Yes [ ] No [ ] Unable to determine For continuity of documentation, please document condition throughout progress notes and discharge summary. Thank You. CLINICAL INDICATORS - SIGNS / SYMPTOMS / LABS 12/18 -12/19 ) BUN : 23,27,30; CREAT: 1.57, 1.58, 1.24 12/18 PN (TAY) ASSESSMENT/PLAN: 2). HYPONATREMIA. THIS COULD BE DUE TO LOW VOLUME DEPLETION. RISK: PERFORATED DUODENAL ULCER TREATMENTS: NS (12/18- PRESENT) THANK YOU FER (This form is maintained as a part of the permanent medical record) 2015 [employer] All Rights Reserved SANTIAGO [email or web address] [phone] MTDD
[2018-12-21] MEDS: Bisacodyl 10 MG SUPP PR PRN ×2 (12:18→14:43)
[2018-12-21] MEDS: Lorazepam 2 MG/ML VIAL SLOW IVP PRN (12:18)
[2018-12-21 13:18] LABS: #Eosinphils 0.1 thou/uL (0.0-0.7); #Lymphocytes 0.5 thou/uL (1.20-3.40); #Monocytes 0.5 thou/uL (0.11-0.59); #Neutrophils 8.3 thou/uL (1.40-6.50); %Basophils 0.3 % (0.0-1.0); %Eosinophils 1.3 % (0.0-10.0); %Lymphocytes 5.6 % (21.0-51.0); %Monocytes 4.8 % (0.0-10.0); Hemoglobin 13.5 g/dL (14.0-18.0); Mean Corpuscular Hemoglobin 32.2 pg (27.0-31.0); Mean Corpuscular Volume 97.4 fL (78.0-98.0); Mean Platelet Volume 6.5 fL (7.4-10.4); Platelet Count 308 thou/uL (130-400); RBC Distribution Width 12.2 % (11.5-14.5); White Blood Cell (WBC) Count 9.4 thou/uL (4.8-10.8)
[2018-12-21] MEDS ORDERED: Sodium Chloride 0.9% 500 ML IVPB SCH (13:30)
--- NOTE | 2018-12-21 13:55 | RAD ---
KUB: HISTORY: Abdominal pain and distention. FINDINGS: There is air in both small and large bowel without signs of obstruction. There is contrast within th e colon, which appears to be from a previous CT. Surgical donita are seen across the midline. Ther e are arthritic changes in the spine. IMPRESSION: No signs of obstruction. Some mild gas distention in the colon. Residual contrast from previous CT noted. POS: TPC
[2018-12-21] MEDS: Nicotine 14 MG PATCH TD SCH (14:43)
[2018-12-21] MEDS ORDERED: Morphine 4 MG/ML VIAL SLOW IVP PRN (15:25)
--- NOTE | 2018-12-21 15:27 | PDOC.PN ---
- Subjective Encounter Start Date: 12/21/18 Encounter Start Time: 13:10 Mr. Latham was seen today in follow-up. He was noted to have an elevated heart rate , and his abdomen appeared distended. The patient however, appears comfortable and does not have any complaints. - Objective MAR Reviewed: Yes Vital Signs & Weight: Vital Signs (12 hours) Temp Pulse Resp BP BP Pulse Ox 12/21/18 15:09 97.6 F 90 16 153/88 H 96 12/21/18 14:05 98.5 F 85 22 H 148/84 H 99 12/21/18 12:18 147 H 157/109 H 12/21/18 11:06 99.0 F 147 H 16 157/109 H 99 12/21/18 09:22 96 155/83 H 12/21/18 08:10 97 12/21/18 08:00 97.3 F L 96 12 155/83 H 97 12/21/18 04:35 97.7 F 96 20 141/79 H 97 Weight Weight 200 lb 6.403 oz Most Recent Monitor Data Heart Rate from ECG 90 NIBP 149/90 NIBP BP-Mean 145 Respiration from ECG 16 SpO2 97 I&O: 12/20/18 12/21/18 12/22/18 06:59 06:59 06:59 Intake Total 1850 1420 350 Output Total 1810 450 Balance 40 970 350 Result Diagrams: 12/21/18 13:08 12/19/18 04:04 Additional Labs: Accuchecks 12/21/18 12/21/18 12/20/18 11:00 05:24 23:34 POC Glucose 75 81 85 12/20/18 12/20/18 20:39 15:13 POC Glucose 78 81 Phys Exam - Physical Examination HEENT: PERRLA Respiratory: no wheezing, no rales, no rhonchi, clear to auscultation bilateral Cardiovascular: RRR, no significant murmur, no rub Gastrointestinal: soft, positive bowel sounds + distended, tympantic to percussion, Musculoskeletal: no edema, pulses present Neurological: non-focal Dx/Plan (1) Schizophrenia Code(s): F20.9 - SCHIZOPHRENIA, UNSPECIFIED Status: Chronic (2) Elevated blood pressure reading Code(s): R03.0 - ELEVATED BLOOD-PRESSURE READING, W/O DIAGNOSIS OF HTN Status : Acute (3) Bipolar disorder Code(s): F31.9 - BIPOLAR DISORDER, UNSPECIFIED Status: Chronic (4) Duodenal ulcer with perforation Code(s): K26.5 - CHRONIC OR UNSPECIFIED DUODENAL ULCER WITH PERFORATION Status : Acute (5) Hypertension Code(s): I10 - ESSENTIAL (PRIMARY) HYPERTENSION Status: Acute - Plan * Tachycardia- EKG was ordered, and demonstrated sinus tachycardia- Fluid bolus has been ordered * HTN- blood pressure is elevated- will continue Amlodipine, which was just started yesterday * Schizophrenia and Bipolar disorder- stable * Abdominal distention- appears to be obstipation- symptom relief.
[2018-12-21 16:29] LABS: Hemoglobin 13.5 g/dL (14.0-18.0); Platelet Count 328 thou/uL (130-400)
[2018-12-21 16:48] LABS: Anion Gap 13 mmol/L (10-20); BUN (Urea Nitrogen) 19 mg/dL (8.4-25.7); Calc. Creatinine Clearance 137 mL/min (70-130); Calcium 9.1 mg/dL (7.8-10.44); Carbon Dioxide 21 mmol/L (23-31); Chloride 107 mmol/L (98-107); Estimated GFR-MDRD Greater than 90; Glucose 81 mg/dL (80-115); Potassium 3.6 mmol/L (3.5-5.1); Sodium 137 mmol/L (136-145)
[2018-12-21] MEDS: Enoxaparin Sodium 40 MG/0.4 ML SYRINGE SC SCH (21:08)
[2018-12-21] MEDS: hydrALAZINE 20 MG/ML VIAL SLOW IVP PRN (21:39)
[2018-12-22] MEDS: Piperacillin/Tazobactam 3.375 GM in Sodium Chloride 0.9% 100 ML IVPB SCH ×5 (00:53→23:58)
[2018-12-22] MEDS: metroNIDAZOLE 500 MG in Premix Bag 1 BAG IVPB SCH ×3 (05:31→21:56)
[2018-12-22] MEDS: Sodium Chloride 0.9% 1,000 ML IV SCH ×3 (05:32→21:58)
[2018-12-22] MEDS: Benztropine 1 MG TAB PO SCH ×2 (09:19→21:57)
[2018-12-22] MEDS: hydrOXYzine 10 MG TAB PO SCH ×2 (09:19→21:57)
[2018-12-22] MEDS: Citalopram 20 MG TAB PO SCH (09:19)
[2018-12-22] MEDS: Amlodipine 10 MG TAB PO SCH (09:19)
[2018-12-22] MEDS: Nicotine 14 MG PATCH TD SCH (13:54)
--- NOTE | 2018-12-22 15:58 | PDOC.GSPN ---
Surgery Progress Note: Subj - Subjective Narrative: Patient denies pain or nausea. He has had a watery bowel movement. Blood pressures upper lobectomy vital signs are okay. His abdomen is still little distended but nontender and bowel sounds are present. Assessment/plan: Status post repair of perforated duodenal ulcer. Bowel function is slowly returning. Diet has been advanced to full liquids. Surgery Progress Note: Obj - Vital signs Vital signs: Vital Signs - Most Recent Temp Pulse Resp BP Pulse Ox 97.6 F 94 16 144/85 H 97 12/22/18 15:32 12/22/18 15:32 12/22/18 15:32 12/22/18 15:32 12/22/18 15:32 Surgery Progress Note: Results - Labs Result Diagrams: 12/21/18 16:21 12/21/18 16:21 Lab results: Laboratory Results - last 24 hr 12/22/18 12/22/18 05:58 11:50 POC Glucose 66 L 81
[2018-12-22] MEDS: Docusate 100 MG CAP PO SCH (21:57)
[2018-12-22] MEDS: Enoxaparin Sodium 40 MG/0.4 ML SYRINGE SC SCH (21:57)
[2018-12-22] MEDS: Lorazepam 2 MG/ML VIAL SLOW IVP PRN (21:57)
[2018-12-23] MEDS: metroNIDAZOLE 500 MG in Premix Bag 1 BAG IVPB SCH ×3 (05:06→21:23)
[2018-12-23] MEDS: Piperacillin/Tazobactam 3.375 GM in Sodium Chloride 0.9% 100 ML IVPB SCH ×3 (05:06→17:37)
[2018-12-23] MEDS: Sodium Chloride 0.9% 1,000 ML IV SCH ×3 (05:06→21:25)
[2018-12-23] MEDS: hydrOXYzine 10 MG TAB PO SCH ×2 (08:14→21:24)
[2018-12-23] MEDS: Benztropine 1 MG TAB PO SCH ×2 (08:14→21:24)
[2018-12-23] MEDS: Citalopram 20 MG TAB PO SCH (08:14)
[2018-12-23] MEDS: Docusate 100 MG CAP PO SCH ×2 (08:15→21:24)
[2018-12-23] MEDS: Amlodipine 10 MG TAB PO SCH (08:15)
[2018-12-23] MEDS: Nicotine 14 MG PATCH TD SCH (13:29)
--- NOTE | 2018-12-23 15:24 | PDOC.PN ---
- Subjective Encounter Start Date: 12/23/18 Encounter Start Time: 15:22 Mr. Latham was seen today in follow-up of duodenal ulcer with perforation. He is resting quietly. He does not affer any complaints. - Objective MAR Reviewed: Yes Vital Signs & Weight: Vital Signs (12 hours) Temp Pulse Resp BP BP Pulse Ox 12/23/18 12:00 98.3 F 100 18 138/83 95 12/23/18 08:15 109 H 155/84 H 12/23/18 08:14 98 12/23/18 07:48 97.7 F 109 H 18 155/89 H 98 12/23/18 05:06 94 L 12/23/18 04:00 98.6 F 90 20 151/89 H 97 Weight Weight 200 lb 6.403 oz Most Recent Monitor Data Heart Rate from ECG 90 NIBP 149/90 NIBP BP-Mean 145 Respiration from ECG 16 SpO2 97 I&O: 12/22/18 12/23/18 12/24/18 06:59 06:59 06:59 Intake Total 410 5760 Output Total 650 Balance 410 5110 Result Diagrams: 12/21/18 16:21 12/21/18 16:21 Additional Labs: Accuchecks 12/23/18 12/23/18 12/22/18 12:57 05:34 21:38 POC Glucose 127 H 149 H 92 12/22/18 17:46 POC Glucose 66 L Phys Exam - Physical Examination Respiratory: no wheezing, no rales, no rhonchi, clear to auscultation bilateral Cardiovascular: RRR, no significant murmur, no rub Gastrointestinal: soft, non-tender, positive bowel sounds + mild distension Musculoskeletal: no edema, pulses present Dx/Plan (1) Hypertension Code(s): I10 - ESSENTIAL (PRIMARY) HYPERTENSION Status: Acute (2) Schizophrenia Code(s): F20.9 - SCHIZOPHRENIA, UNSPECIFIED Status: Chronic (3) Elevated blood pressure reading Code(s): R03.0 - ELEVATED BLOOD-PRESSURE READING, W/O DIAGNOSIS OF HTN Status : Acute (4) Bipolar disorder Code(s): F31.9 - BIPOLAR DISORDER, UNSPECIFIED Status: Chronic (5) Duodenal ulcer with perforation Code(s): K26.5 - CHRONIC OR UNSPECIFIED DUODENAL ULCER WITH PERFORATION Status : Acute - Plan * HTN- blood pressure is beginning to trend down- continue Amlodipine * Schizophrenia and Bipolar disorder- both stable * Duodenal Ulcer with perforation- H. Pylori stool antigen is not yet collected - will check H. Pylori serum IgG, and if positive would give a course of H. Pylori treatment * Disposition as per General surgery.
--- NOTE | 2018-12-23 18:41 | PDOC.GSPN ---
Surgery Progress Note: Subj - Subjective Narrative: Patient denies abdominal pain or nausea. According to his nursing has been passing gas. He hasn't had a bowel movement during the day but she was told that he had some yesterday. His abdomen is still fairly distended but the bowel sounds are little bit better. He denies any tenderness to palpation. His wound is dressed and the gauze is clean. Assessment/plan: Status post washout for perforated ulcer with slow return of bowel function. I decided to leave him on a full liquid diet for today since he is still fairly distended. However this may be his baseline. It is a little difficult to tell since the patient isn't able to give me much history or answer complex questions. Clinically however he is slowly improving. Surgery Progress Note: Obj - Vital signs Vital signs: Vital Signs - Most Recent Temp Pulse Resp BP Pulse Ox 98.7 F 91 16 135/83 96 12/23/18 15:54 12/23/18 15:54 12/23/18 15:54 12/23/18 15:54 12/23/18 15:54 Surgery Progress Note: Results - Labs Result Diagrams: 12/21/18 16:21 12/21/18 16:21 Lab results: Laboratory Results - last 24 hr 12/23/18 12/23/18 12:57 18:04 POC Glucose 127 H 152 H
[2018-12-23] MEDS: Enoxaparin Sodium 40 MG/0.4 ML SYRINGE SC SCH (21:23)
[2018-12-24] MEDS: Piperacillin/Tazobactam 3.375 GM in Sodium Chloride 0.9% 100 ML IVPB SCH ×4 (00:12→17:13)
[2018-12-24] MEDS: metroNIDAZOLE 500 MG in Premix Bag 1 BAG IVPB SCH ×2 (05:41→13:07)
[2018-12-24] MEDS: Sodium Chloride 0.9% 1,000 ML IV SCH ×2 (05:41→13:07)
[2018-12-24] MEDS: Citalopram 20 MG TAB PO SCH (08:58)
[2018-12-24] MEDS: Amlodipine 10 MG TAB PO SCH (08:59)
[2018-12-24] MEDS: Benztropine 1 MG TAB PO SCH ×2 (08:59→21:13)
[2018-12-24] MEDS: Docusate 100 MG CAP PO SCH ×2 (08:59→21:13)
[2018-12-24] MEDS: hydrOXYzine 10 MG TAB PO SCH ×2 (09:00→21:13)
[2018-12-24] MEDS: Nicotine 14 MG PATCH TD SCH (13:08)
--- NOTE | 2018-12-24 14:35 | PDOC.PN ---
- Subjective Encounter Start Date: 12/24/18 Encounter Start Time: 14:33 Tolerating po. No bowel movement, positive flatus. Spoke to bedside nurse. No acute overnight events. No nausea or vomiting. - Objective Vital Signs & Weight: Vital Signs (12 hours) Temp Pulse Resp BP BP Pulse Ox 12/24/18 11:41 98.4 F 91 18 152/81 H 97 12/24/18 08:59 88 128/80 97 12/24/18 08:00 97.5 F L 88 14 128/80 97 12/24/18 04:00 98 F 90 16 145/82 H 99 Weight Weight 200 lb 6.403 oz Most Recent Monitor Data Heart Rate from ECG 90 NIBP 149/90 NIBP BP-Mean 145 Respiration from ECG 16 SpO2 97 I&O: 12/23/18 12/24/18 12/25/18 06:59 06:59 06:59 Intake Total 5760 2650 Output Total 650 2500 Balance 5110 150 Result Diagrams: 12/21/18 16:21 12/21/18 16:21 Additional Labs: Accuchecks 12/24/18 12/24/18 12/23/18 11:35 05:56 23:26 POC Glucose 87 84 72 12/23/18 18:04 POC Glucose 152 H Phys Exam - Physical Examination Constitutional: NAD Poor history infant caregiver HEENT: moist MMs Neck: supple Respiratory: clear to auscultation bilateral Cardiovascular: RRR Gastrointestinal: positive bowel sounds Mild distention present. Incision dressed. Musculoskeletal: no edema Neurological: non-focal Deviation from normal: Abnormal affect, at baseline per nursing Skin: no rash Dx/Plan (1) Duodenal ulcer with perforation Code(s): K26.5 - CHRONIC OR UNSPECIFIED DUODENAL ULCER WITH PERFORATION Status : Acute (2) Hypertension Code(s): I10 - ESSENTIAL (PRIMARY) HYPERTENSION Status: Acute (3) Bipolar disorder Code(s): F31.9 - BIPOLAR DISORDER, UNSPECIFIED Status: Chronic (4) Schizophrenia Code(s): F20.9 - SCHIZOPHRENIA, UNSPECIFIED Status: Chronic - Plan * Duodenal ulcer with perforation - H pylori serum Ig G pending. If positive, treat with course for H pylori * Schizophrenia and bipolar - stable, at baseline * HTN - amlodipine titrated 12/21, will monitor for now and may need further adjustments pending response. BP generally 128-158 systolics. * Ambulate/OOB
--- NOTE | 2018-12-24 15:52 | PRG ---
DATE OF SERVICE: 12/24/2018 SUBJECTIVE: The patient denies any pain. Nurse says he is having bowel movements and the patient reports to the nurse that he is passing gas. He is tolerating a full liquid diet. He is voiding well. Good urine output. OBJECTIVE: VITAL SIGNS: His temperature is 98.4, pulse 91, and blood pressure 152/81. GENERAL: He is awake, alert, but does not communicate well. HEENT: No jaundice. ABDOMEN: Obese, protuberant, and nontender. ASSESSMENT: Stable. PLAN: Advance diet. Discharge soon. Job ID: [id number]
[2018-12-24] MEDS ORDERED: hydrALAZINE 25 MG TAB PO PRN (18:57)
[2018-12-24] MEDS: Enoxaparin Sodium 40 MG/0.4 ML SYRINGE SC SCH (21:13)
[2018-12-25] MEDS: Docusate 100 MG CAP PO SCH (08:33)
[2018-12-25] MEDS: Citalopram 20 MG TAB PO SCH (08:33)
[2018-12-25] MEDS: Amlodipine 10 MG TAB PO SCH (08:34)
[2018-12-25] MEDS: Benztropine 1 MG TAB PO SCH (08:34)
[2018-12-25] MEDS: hydrOXYzine 10 MG TAB PO SCH (08:34)
--- NOTE | 2018-12-25 10:51 | PDOC.PN ---
- Subjective Encounter Start Date: 12/25/18 Encounter Start Time: 07:00 Subjective: no abd pain or nausea -: is tolerating liq diet, says he had bm yesterday -: is amb in room per patient, not a reliable historian - Objective MAR Reviewed: Yes Vital Signs & Weight: Vital Signs (12 hours) Temp Pulse Resp BP BP Pulse Ox 12/25/18 08:34 90 142/69 H 12/25/18 07:34 98.5 F 90 18 142/69 H 100 12/25/18 04:44 98.6 F 88 16 130/78 98 12/25/18 00:43 98.5 F 74 16 128/71 97 Weight Weight 200 lb 6.403 oz Most Recent Monitor Data Heart Rate from ECG 90 NIBP 149/90 NIBP BP-Mean 145 Respiration from ECG 16 SpO2 97 I&O: 12/24/18 12/25/18 12/26/18 06:59 06:59 06:59 Intake Total 2650 1290 Output Total 2500 Balance 150 1290 Result Diagrams: 12/21/18 16:21 12/21/18 16:21 Additional Labs: Accuchecks 12/25/18 12/24/18 12/24/18 06:14 23:51 18:00 POC Glucose 85 132 H 105 12/24/18 11:35 POC Glucose 87 Phys Exam - Physical Examination HEENT: PERRLA, moist MMs Neck: no JVD, supple Respiratory: no wheezing, no rales Cardiovascular: RRR, no significant murmur Gastrointestinal: soft, non-tender, no distention, positive bowel sounds Musculoskeletal: no edema, pulses present Neurological: non-focal, moves all 4 limbs Dx/Plan (1) Duodenal ulcer with perforation Code(s): K26.5 - CHRONIC OR UNSPECIFIED DUODENAL ULCER WITH PERFORATION Status : Acute Comment: s/p expl lap with closure of duodenal ulcer with omental patch and lysis of adhesions (2) Hypertension Code(s): I10 - ESSENTIAL (PRIMARY) HYPERTENSION Status: Chronic Qualifiers: Hypertension type: essential hypertension Qualified Code(s): I10 - Essential (primary) hypertension (3) Bipolar disorder Code(s): F31.9 - BIPOLAR DISORDER, UNSPECIFIED Status: Chronic Qualifiers: Active/Remission status: remission status unspecified Qualified Code(s): F31.9 - Bipolar disorder, unspecified (4) Schizophrenia Code(s): F20.9 - SCHIZOPHRENIA, UNSPECIFIED Status: Chronic Qualifiers: Schizophrenia type: unspecified Qualified Code(s): F20.9 - Schizophrenia, unspecified (5) Obesity (BMI 30.0-34.9) Code(s): E66.9 - OBESITY, UNSPECIFIED Status: Chronic - Plan hemostable -: dc plan per gen surgery adv -: is on norvasc, celexa, cogentin and home meds for schizo and bipolar -: to amb in hallway as tolerated * . Review of Systems - Medications/Allergies Allergies/Adverse Reactions: Allergies Allergy/AdvReac Type Severity Reaction Status Date / Time No Known Allergies Allergy Verified 12/19/18 15:44 Medications: Current Medications Acetaminophen (Tylenol) 650 mg PO Q4H PRN PRN Reason: Headache/Fever or Pain Last Admin: 12/21/18 05:42 Dose: 650 mg Albuterol/Ipratropium (Duoneb) 3 ml NEB Q4H PRN PRN Reason: Wheezing Last Admin: 12/21/18 23:38 Dose: 3 ml Amlodipine Besylate (Norvasc) 10 mg PO DAILY [facility] Last Admin: 12/25/18 08:34 Dose: 10 mg Benztropine Mesylate (Cogentin) 2 mg PO BID [facility] Last Admin: 12/25/18 08:34 Dose: 2 mg Bisacodyl (Dulcolax) 10 mg OR Q8H PRN PRN Reason: Constipation Last Admin: 12/21/18 14:43 Dose: 10 mg Citalopram Hydrobromide (Celexa) 40 mg PO DAILY [facility] Last Admin: 12/25/18 08:33 Dose: 40 mg Dextrose/Water (Dextrose 50%) 25 gm SLOW IVP PRN PRN PRN Reason: Hypoglycemia Last Admin: 12/19/18 18:00 Dose: 25 gm Docusate Sodium (Colace) 100 mg PO BID [facility] Last Admin: 12/25/18 08:33 Dose: 100 mg Enoxaparin Sodium (Lovenox) 40 mg SC 2100 [facility] Last Admin: 12/24/18 21:13 Dose: 40 mg Glucagon (Glucagon) 1 mg IM PRN PRN PRN Reason: Hypoglycemia Hydralazine HCl (Apresoline) 25 mg PO QID PRN PRN Reason: SBP > 150 Hydroxyzine HCl (Atarax) 10 mg PO BID [facility] Last Admin: 12/25/18 08:34 Dose: 10 mg Dextrose/Water (D5w) 1,000 mls @ 0 mls/hr IV .Q0M PRN PRN Reason: Hypoglycemia Last Admin: 12/19/18 18:26 Dose: 1,000 mls Insulin Human Regular (Humulin R) 0 units SC .MODERATE SLIDING SC PRN PRN Reason: Moderate Correctional Scale Nicotine (Nicoderm Patch) 14 mg TD Q24HR [facility] Last Admin: 12/24/18 13:08 Dose: 14 mg Ondansetron HCl (Zofran) 4 mg IVP Q6H PRN PRN Reason: Nausea/Vomiting Pantoprazole Sodium (Protonix) 40 mg PO BID [facility] Last Admin: 12/25/18 08:33 Dose: 40 mg Promethazine HCl (Phenergan) 12.5 mg IM Q4H PRN PRN Reason: Nausea/Vomiting Sodium Chloride (Flush - Normal Saline) 10 ml IVF PRN PRN PRN Reason: Saline Flush Last Admin: 12/21/18 21:09 Dose: 10 ml
--- NOTE | 2018-12-25 11:40 | DIS ---
DATE OF ADMISSION: 12/18/2018 DATE OF DISCHARGE: 12/25/2018 DISCHARGE DIAGNOSES: Perforated duodenal ulcer with peritonitis, bipolar depression, and schizophrenia. PROCEDURES DURING ADMISSION: Exploratory laparotomy and closure of perforation of ulcer, omental patch. HOSPITAL COURSE: The patient was admitted, given IV fluids and antibiotics, taken to the operating room, where he underwent exploratory laparotomy, was found to have perforated duodenal ulcer. He underwent closure, Amos patch. Postoperatively, he had a prolonged ileus. He was treated with antibiotics. Eventually, his bowel functions returned. He is now tolerating a regular diet. Pain is controlled with p.o. medications. He is discharged home on Protonix, Zofran, and hydrocodone. He will follow up with me in 1 week for staple removal. Job ID: [id number]
[2018-12-25] MEDS: Nicotine 14 MG PATCH TD SCH (14:30)
[2018-12-25 15:37] VITALS: BP 146/78; TEMP 97.9
== END 2018-12-25 16:55 | disposition home or self-care (01) | DRG 327 ==
LOC: ERS 00:03 → SDC/OP 03:38 → CCU 04:57 → SURG A 12-19 13:37
PROVIDERS: ADMIT Surgery; ATTEND Surgery
PROC: 0DQ90ZZ Repair Duodenum, Open Approach (ICD-10-PCS; principal; 2018-12-18)
DX: K26.5 Chronic or unspecified duodenal ulcer with perforation (principal); F20.89 Other schizophrenia; N17.9 Acute kidney failure, unspecified; F31.9 Bipolar disorder, unspecified; I10 Essential (primary) hypertension; E66.9 Obesity, unspecified; Z68.32 Body mass index [BMI] 32.0-32.9, adult
CPT/HCPCS: 36415; 36416; 71045; 71275; 74018; 74176; 74177; 74241; 80048; 80053; 80307; 83735; 83880; 84443; 85025; 85060; 86677; 87070; 87205; 90471; 90686; 90732; 93005; 93010; 94640; 96365; 96375; C9113; G0008; G0009; J0360; J1650; J2001; J2060; J2250; J2270; J2370; J2405; J2543; J3010; J3490; J7050; J7620; P9047; Q9963; Q9966; S0028

== ENCOUNTER 2023-08-26 15:16 | Inpatient (IN) | payer OTHER ==
[2023-08-26 16:05] LABS: #Eosinphils 0.5 thou/uL (0.0-0.7); #Monocytes 0.4 thou/uL (0.11-0.59); #Neutrophils 4.8 thou/uL (1.40-6.50); %Basophils 0.6 % (0.0-1.0); %Lymphocytes 12.9 % (21.0-51.0); %Monocytes 6.3 % (0.0-10.0); %Neutrophils 72.9 % (42.0-75.0); Hematocrit 33.6 % (42.0-52.0); Hemoglobin 11.9 g/dL (14.0-18.0); Mean Corpuscular HGB CONC 35.4 g/dL (32.0-36.0); Mean Corpuscular Hemoglobin 32.5 pg (27.0-31.0); Mean Corpuscular Volume 91.8 fl (78.0-98.0); Platelet Count 247 10x3/uL (130-400); Red Blood Cell (RBC) Count 3.66 mill/uL (4.70-6.10); White Blood Cell (WBC) Count 6.5 10x3/uL (4.8-10.8)
[2023-08-26 16:27] LABS: Acetaminophen Less than 10 mcg/mL (10.0-30.0); Alcohol Less than 10.0 mg/dL (Less than 10); Salicylate Less than 8.0 mg/dL (15.0-30.0)
[2023-08-26 16:31] LABS: Troponin I 0.019 ng/mL (< 0.028)
[2023-08-26 16:33] LABS: ALT (SGPT) 47 U/L (8-55); AST (SGOT) 53 U/L (5-34); Albumin 4.4 g/dL (3.4-4.8); Alkaline Phosphatase 82 U/L (40-110); Anion Gap 13 mmol/L (10-20); BUN (Urea Nitrogen) 17 mg/dL (8.4-25.7); Bilirubin, Total 0.3 mg/dL (0.2-1.2); Calc. Creatinine Clearance 0 mL/min (70-130); Calcium 8.9 mg/dL (7.8-10.44); Carbon Dioxide 23 mmol/L (23-31); Chloride 92 mmol/L (98-107); Estimated GFR 98; Globulin 1.7 g/dL (2.4-3.5); Glucose 119 mg/dL (80-115); Potassium 4.4 mmol/L (3.5-5.1); Protein, Total 6.1 g/dL (5.8-8.1); Sodium 124 mmol/L (136-145)
[2023-08-26 16:46] LABS: Bilirubin Negative (Negative); Blood, Urine Negative (Negative); CAUTI Indications for Culture Alt mental st,lethar; Clarity Clear (Clear); Glucose, Urine (Dipstick) Normal (Negative); Ketone, Urine Negative (Negative); Leukocyte Negative Leu/uL (Negative); Nitrite Negative (Negative); Protein, Urine (Dipstick) 20 mg/dL (Neg-Trace); RBC/HPF 0-3 HPF (0-3); Specific Gravity, Urine 1.026 (1.002-1.036); Squamous Epithelial 0-3 HPF (0-3); WBC/HPF 0-3 HPF (0-3)
[2023-08-26 16:49] LABS: Amphetamine Not Detected (NotDetected); Barbiturates Screen Not Detected (NotDetected); Benzodiazepine Screen Not Detected (NotDetected); Cocaine Metabolite Screen Not Detected (NotDetected); Methadone Not Detected (NotDetected); Methamphetamine Not Detected (NotDetected); Opiate Screen Not Detected (NotDetected); Oxycodone Screen Not Detected (NotDetected); Phencyclidine (PCP) Not Detected (NotDetected); THC/Cannabinoid Screen Not Detected (NotDetected); Tricyclic Screen Not Detected (NotDetected)
[2023-08-26 16:57] LABS: Bacteria/HPF 1+ HPF (None Seen)
[2023-08-26 16:58] LABS: Urine Culture Reflex No No
[2023-08-26 18:27] LABS: Anion Gap 11 mmol/L (10-20); BUN (Urea Nitrogen) 16 mg/dL (8.4-25.7); Calc. Creatinine Clearance 0 mL/min (70-130); Calcium 8.2 mg/dL (7.8-10.44); Carbon Dioxide 22 mmol/L (23-31); Chloride 95 mmol/L (98-107); Estimated GFR 102; Glucose 119 mg/dL (80-115); Magnesium 1.9 mg/dL (1.6-2.6); Potassium 3.8 mmol/L (3.5-5.1); Sodium 124 mmol/L (136-145)
[2023-08-26] MEDS ORDERED: Acetaminophen 650 MG Suppository PR PRN (18:36)
[2023-08-26] MEDS ORDERED: Acetaminophen 325 MG TAB PO PRN (18:36)
[2023-08-26] MEDS ORDERED: Ondansetron PF 4 MG/2 ML Vial IVP PRN (18:36)
[2023-08-26] MEDS ORDERED: hydrALAZINE 20 MG/ML VIAL SLOW IVP PRN (18:36)
[2023-08-26] MEDS ORDERED: Ondansetron ODT 4 MG TAB PO PRN (18:36)
[2023-08-26] MEDS ORDERED: Sodium Chloride 0.9% 1,000 ML IV SCH (20:00)
[2023-08-26] MEDS ORDERED: Aspirin 300 MG Suppository PR SCH (21:00)
[2023-08-26 21:25] VITALS: BMI 22.8
[2023-08-26 22:11] LABS: Anion Gap 10 mmol/L (10-20); BUN (Urea Nitrogen) 14 mg/dL (8.4-25.7); Calc. Creatinine Clearance 110 mL/min (70-130); Calcium 8.2 mg/dL (7.8-10.44); Carbon Dioxide 22 mmol/L (23-31); Chloride 97 mmol/L (98-107); Estimated GFR 103; Glucose 111 mg/dL (80-115); Potassium 3.8 mmol/L (3.5-5.1); Sodium 125 mmol/L (136-145)
[2023-08-26] MEDS: Nicotine 14 MG PATCH TD PRN (23:00)
[2023-08-27 05:19] LABS: #Eosinphils 0.5 thou/uL (0.0-0.7); #Monocytes 0.4 thou/uL (0.11-0.59); #Neutrophils 3.8 thou/uL (1.40-6.50); %Basophils 0.7 % (0.0-1.0); %Eosinophils 9.1 % (0.0-10.0); %Lymphocytes 14.3 % (21.0-51.0); %Monocytes 7.6 % (0.0-10.0); %Neutrophils 67.9 % (42.0-75.0); Hematocrit 33.2 % (42.0-52.0); Hemoglobin 11.6 g/dL (14.0-18.0); Mean Corpuscular HGB CONC 34.9 g/dL (32.0-36.0); Mean Corpuscular Hemoglobin 32.7 pg (27.0-31.0); Mean Corpuscular Volume 93.5 fl (78.0-98.0); Mean Platelet Volume 8.8 fL (7.4-10.4); Platelet Count 226 10x3/uL (130-400); RBC Distribution Width 13.1 % (11.5-14.5); Red Blood Cell (RBC) Count 3.55 mill/uL (4.70-6.10); White Blood Cell (WBC) Count 5.5 10x3/uL (4.8-10.8)
[2023-08-27 05:53] LABS: Hemoglobin A1c 5.5 % (4.0-6.0)
[2023-08-27 06:16] LABS: Anion Gap 11 mmol/L (10-20); BUN (Urea Nitrogen) 12 mg/dL (8.4-25.7); Calc. Creatinine Clearance 115 mL/min (70-130); Carbon Dioxide 21 mmol/L (23-31); Cardiac Risk 2.2 (Less than 4.5); Chloride 98 mmol/L (98-107); Cholesterol 124 mg/dl (< 200 Desired); Estimated GFR 105; Glucose 78 mg/dL (80-115); HDL Cholesterol 56 mg/dL (>60 Neg Risk); LDL Cholesterol, Calculated 57 mg/dL; Potassium 3.9 mmol/L (3.5-5.1); Sodium 126 mmol/L (136-145); Triglycerides 55 mg/dL (Less than 150)
[2023-08-27 08:20] LABS: Anion Gap 12 mmol/L (10-20); BUN (Urea Nitrogen) 11 mg/dL (8.4-25.7); Calc. Creatinine Clearance 108 mL/min (70-130); Calcium 8.3 mg/dL (7.8-10.44); Carbon Dioxide 21 mmol/L (23-31); Chloride 98 mmol/L (98-107); Estimated GFR 103; Glucose 82 mg/dL (80-115); Potassium 4.1 mmol/L (3.5-5.1); Sodium 127 mmol/L (136-145)
[2023-08-27] MEDS ORDERED: FLU VACC QS2023(65UP)/MF59C/PF 60 MCG/0.5 ML SYRINGE IM ONE (09:00)
[2023-08-27 10:39] LABS: HIV (1/2) Antibody/Antigen Non-Reactive (NonReactive); HIV 1/2 INDEX 0.28 S/CO (<1.00)
[2023-08-27 10:45] LABS: Vitamin B12 491 pg/mL (211-911)
[2023-08-27] MEDS ORDERED: Amlodipine 5 MG TAB PO SCH (17:15)
[2023-08-27] MEDS ORDERED: Thiamine 100 MG TAB PO SCH (17:30)
[2023-08-27] MEDS ORDERED: Erythromycin Base 0.5% Oint 1 GM TUBE R EYE SCH (18:00)
[2023-08-27] MEDS: Benztropine 1 MG TAB PO SCH (20:01)
[2023-08-27] MEDS: hydrOXYzine 10 MG TAB PO SCH (20:01)
[2023-08-28 06:06] LABS: #Basophils 0.1 thou/uL (0.0-0.2); #Eosinphils 0.5 thou/uL (0.0-0.7); #Monocytes 0.3 thou/uL (0.11-0.59); #Neutrophils 3.6 thou/uL (1.40-6.50); %Eosinophils 9.6 % (0.0-10.0); %Lymphocytes 12.5 % (21.0-51.0); %Monocytes 6.6 % (0.0-10.0); %Neutrophils 69.9 % (42.0-75.0); Hematocrit 39.4 % (42.0-52.0); Hemoglobin 13.5 g/dL (14.0-18.0); Mean Corpuscular HGB CONC 34.3 g/dL (32.0-36.0); Mean Corpuscular Volume 93.4 fl (78.0-98.0); Mean Platelet Volume 8.8 fL (7.4-10.4); Platelet Count 250 10x3/uL (130-400); RBC Distribution Width 13.1 % (11.5-14.5); Red Blood Cell (RBC) Count 4.22 mill/uL (4.70-6.10); White Blood Cell (WBC) Count 5.2 10x3/uL (4.8-10.8)
[2023-08-28 06:35] LABS: Anion Gap 14 mmol/L (10-20); BUN (Urea Nitrogen) 9 mg/dL (8.4-25.7); Calc. Creatinine Clearance 106 mL/min (70-130); Calcium 8.6 mg/dL (7.8-10.44); Carbon Dioxide 23 mmol/L (23-31); Chloride 96 mmol/L (98-107); Estimated GFR 102; Glucose 71 mg/dL (80-115); Potassium 4.1 mmol/L (3.5-5.1); Sodium 129 mmol/L (136-145)
[2023-08-28] MEDS: Aspirin 81 mg Enteric Coated Tablet PO SCH (08:06)
[2023-08-28] MEDS: Benztropine 1 MG TAB PO SCH ×2 (08:06→21:07)
[2023-08-28] MEDS: Nicotine 14 MG PATCH TD PRN (08:07)
[2023-08-28] MEDS: Thiamine 100 MG TAB PO SCH (08:07)
[2023-08-28] MEDS: Citalopram 20 MG TAB PO SCH (08:07)
[2023-08-28] MEDS: hydrOXYzine 10 MG TAB PO SCH ×2 (08:07→21:07)
[2023-08-28] MEDS ORDERED: Amlodipine 5 MG TAB PO SCH (09:00)
[2023-08-28 10:57] LABS: Syphilis Antibody Nonreactive (Nonreactive); Syphilis Antibody Index 0.11 S/CO (<1.00 Non-Reactive)
[2023-08-28] MEDS ORDERED: Magnevist 469MG/ML 20 ML VIAL ONE (14:12)
[2023-08-29] MEDS ORDERED: QUEtiapine 25 MG TAB PO SCH ×2 (00:15→21:00)
[2023-08-29] MEDS ORDERED: Haloperidol Lactate 5 MG/ML VIAL SLOW IVP SCH ×2 (03:00→04:30)
[2023-08-29 07:10] LABS: Anion Gap 12 mmol/L (10-20); BUN (Urea Nitrogen) 46 mg/dL (8.4-25.7); Calc. Creatinine Clearance 111 mL/min (70-130); Calcium 8.5 mg/dL (7.8-10.44); Carbon Dioxide 23 mmol/L (23-31); Chloride 98 mmol/L (98-107); Estimated GFR 104; Glucose 95 mg/dL (80-115); Potassium 4.5 mmol/L (3.5-5.1); Sodium 128 mmol/L (136-145)
[2023-08-29] MEDS: Aspirin 81 mg Enteric Coated Tablet PO SCH (08:26)
[2023-08-29] MEDS: Thiamine 100 MG TAB PO SCH (08:26)
[2023-08-29] MEDS: hydrOXYzine 10 MG TAB PO SCH ×2 (08:26→20:44)
[2023-08-29] MEDS: NIFEdipine XL 60 MG ER.TAB PO SCH (08:27)
[2023-08-29] MEDS: Citalopram 20 MG TAB PO SCH (08:27)
[2023-08-29] MEDS: Benztropine 1 MG TAB PO SCH ×2 (08:28→20:44)
[2023-08-29] MEDS ORDERED: PALIPERIDONE PALMITATE 117 MG/0.75 ML IM SCH (12:00)
[2023-08-29] MEDS: Nicotine 14 MG PATCH TD PRN (12:37)
[2023-08-30 07:51] LABS: #Monocytes 0.2 thou/uL (0.11-0.59); #Neutrophils 7.7 thou/uL (1.40-6.50); %Basophils 0.1 % (0.0-1.0); %Eosinophils 0.1 % (0.0-10.0); %Lymphocytes 4.6 % (21.0-51.0); %Monocytes 2.3 % (0.0-10.0); %Neutrophils 91.9 % (42.0-75.0); Hematocrit 17.9 % (42.0-52.0); Hemoglobin 6.1 g/dL (14.0-18.0); Mean Corpuscular HGB CONC 34.1 g/dL (32.0-36.0); Mean Corpuscular Hemoglobin 32.8 pg (27.0-31.0); Mean Corpuscular Volume 96.2 fl (78.0-98.0); Mean Platelet Volume 9.4 fL (7.4-10.4); Platelet Count 207 10x3/uL (130-400); RBC Distribution Width 13.6 % (11.5-14.5); Red Blood Cell (RBC) Count 1.86 mill/uL (4.70-6.10); White Blood Cell (WBC) Count 8.3 10x3/uL (4.8-10.8)
[2023-08-30 08:24] LABS: Anion Gap 14 mmol/L (10-20); BUN (Urea Nitrogen) 90 mg/dL (8.4-25.7); Calc. Creatinine Clearance 81 mL/min (70-130); Calcium 8.3 mg/dL (7.8-10.44); Carbon Dioxide 21 mmol/L (23-31); Chloride 103 mmol/L (98-107); Estimated GFR 94; Glucose 128 mg/dL (80-115); Potassium 4.9 mmol/L (3.5-5.1); Sodium 133 mmol/L (136-145)
[2023-08-30] MEDS ORDERED: Pantoprazole 40 MG VIAL IVP SCH (09:00)
[2023-08-30] MEDS ORDERED: Sodium Chloride 0.9% 1,000 ML IV SCH (09:30)
[2023-08-30] MEDS: NIFEdipine XL 60 MG ER.TAB PO SCH (09:58)
[2023-08-30] MEDS: Thiamine 100 MG TAB PO SCH (10:27)
[2023-08-30] MEDS: hydrOXYzine 10 MG TAB PO SCH ×2 (10:27→20:50)
[2023-08-30] MEDS: Benztropine 1 MG TAB PO SCH ×2 (10:27→20:49)
[2023-08-30] MEDS: Citalopram 20 MG TAB PO SCH (10:27)
[2023-08-30] MEDS: Aspirin 81 mg Enteric Coated Tablet PO SCH (10:33)
[2023-08-30 10:54] LABS: Hematocrit 17.9 % (42.0-52.0); Hemoglobin 6.1 g/dL (14.0-18.0); Platelet Count 214 10x3/uL (130-400)
[2023-08-30] MEDS ORDERED: ePHEDrine Sulfate 50 MG/10 ML VIAL ONE (12:06)
[2023-08-30] MEDS ORDERED: Succinylcholine 200 MG/10 ml SYRINGE FS ONE (12:06)
[2023-08-30] MEDS ORDERED: PHENYLEPHRINE-NS 100 MCG/ML 10 ML SYRINGE ONE (12:06)
[2023-08-30] MEDS ORDERED: PROPOFOL 200 MG/20 ML VIAL ONE (12:06)
[2023-08-30] MEDS ORDERED: fentaNYL PF 100 MCG/2 ML SYRINGE ONE (12:09)
[2023-08-30] MEDS ORDERED: Vasopressin 20 UNITS/ML VIAL ONE (12:09)
[2023-08-30] MEDS ORDERED: Albumin 5% 500 ML ONE (12:09)
[2023-08-30] MEDS ORDERED: Pantoprazole 80 MG in Sodium Chloride 0.9% 100 ML IVP SCH (12:15)
[2023-08-30] MEDS ORDERED: Octreotide Acetate 500 MCG/ML VIAL SLOW IVP SCH (12:15)
[2023-08-30] MEDS ORDERED: Octreotide Acetate 50 MCG/ML AMP SLOW IVP SCH (12:15)
[2023-08-30] MEDS ORDERED: EPINEPHrine 1 MG/10 ML Abboject SYRINGE ONE (13:02)
[2023-08-30] MEDS ORDERED: Octreotide Acetate 1,250 MCG in Sodium Chloride 0.9% 250 ML 250 ML IVPB SCH (13:15)
[2023-08-30 13:58] LABS: Actual Bicarbonate (HCO3a) 20.7 mEq/L (22-28); CO2 Tension 36.1 mmHg (35.0-45.0); Calcium, Ionized (arterial) 1.14 mmol/L (1.12-1.30); Hematocrit-ABG 25 % (42.0-52.0); Hemoglobin (Hb) 8.4 g/dL (14.0-18.0); O2 Tension (PaO2), arterial 153.5 mmHg (> 80.0); Potassium - ABG Lab 4.66 mmol/L (3.70-5.30); pH, Arterial 7.377 (7.35-7.45)
[2023-08-30 13:59] LABS: Puncture Site LBA
[2023-08-30 14:00] LABS: ALV-art Gradient 86.575 mmHg (0-20)
[2023-08-30] MEDS ORDERED: Ventilator Sedation Protocol 1 EACH FS ONE (14:04)
[2023-08-30] MEDS: cefTRIAXone\\ROCEPHIN 1 GM in Sodium Chloride 0.9% 100 ML IVPB SCH (14:08)
[2023-08-30] MEDS ORDERED: Fentanyl BOLUS 250 ML IVPB PRN (14:15)
[2023-08-30] MEDS ORDERED: Propofol 1,000 MG/100 ML VIAL IV PRN (14:15)
[2023-08-30] MEDS ORDERED: Propofol BOLUS 1,000 MG/100 ML VIAL IV PRN (14:15)
[2023-08-30] MEDS ORDERED: DISCONTINUE PREVIOUS NARCOTIC PAIN MEDICATIONS AND BENZODIAZEPINES FS SCH (14:15)
[2023-08-30] MEDS ORDERED: Morphine 2 MG/ML VIAL SLOW IVP PRN (14:15)
[2023-08-30] MEDS ORDERED: Lorazepam 2 MG/ML VIAL SLOW IVP PRN (14:15)
[2023-08-30] MEDS ORDERED: Fentanyl CADD 100 ML IV SCH (14:15)
[2023-08-30] MEDS: Pantoprazole 80 MG, Admixture Fee 1 EACH in Sodium Chloride 0.9% 100 ML IVPB SCH (15:19)
[2023-08-30 17:28] LABS: Hematocrit 26.2 % (42.0-52.0); Hemoglobin 8.6 g/dL (14.0-18.0); Platelet Count 161 10x3/uL (130-400)
[2023-08-30 20:22] LABS: Hematocrit 22.4 % (42.0-52.0); Hemoglobin 7.4 g/dL (14.0-18.0); Platelet Count 164 10x3/uL (130-400)
[2023-08-30] MEDS ORDERED: Sodium Chloride 0.9% 500 ML IV SCH (20:30)
[2023-08-30 20:53] LABS: Actual Bicarbonate (HCO3v) 20.9 mEq/L (22-28); Base Excess -2.3 mEq/L (-2.0 to +3.0); Calcium, Ionized (venous) 1.01 mmol/L (1.16-1.32); Chloride (VBG) 108 mmol/L (98-106); Hematocrit-VBG 24 % (42.0-52.0); Potassium (VBG) 4.42 mmol/L (3.70-5.30); Sodium 133 mmol/L (133-146); pH (venous) 7.469 (7.32-7.43)
[2023-08-30] MEDS: Sodium Chloride 0.9% 1,000 ML IV SCH (20:53)
[2023-08-30 21:22] LABS: Lactic Acid 1.4 mmol/L (0.5-2.2)
[2023-08-30 21:23] LABS: INR-International Normal Ratio 1.2; Prothrombin Time 15.8 sec (12.0-14.7)
[2023-08-30 21:24] LABS: PTT 27.1 sec (22.9-36.1)
[2023-08-30 21:31] LABS: Anion Gap 10 mmol/L (10-20); BUN (Urea Nitrogen) 78 mg/dL (8.4-25.7); Calc. Creatinine Clearance 89 mL/min (70-130); Calcium 7.9 mg/dL (7.8-10.44); Carbon Dioxide 19 mmol/L (23-31); Chloride 111 mmol/L (98-107); Estimated GFR 97; Glucose 101 mg/dL (80-115); Potassium 4.4 mmol/L (3.5-5.1); Sodium 136 mmol/L (136-145)
[2023-08-31 01:55] LABS: #Eosinphils 0.1 thou/uL (0.0-0.7); #Monocytes 0.8 thou/uL (0.11-0.59); %Basophils 0.2 % (0.0-1.0); %Eosinophils 0.7 % (0.0-10.0); %Lymphocytes 7.3 % (21.0-51.0); %Monocytes 9.1 % (0.0-10.0); %Neutrophils 81.5 % (42.0-75.0); Hematocrit 25.5 % (42.0-52.0); Hemoglobin 8.7 g/dL (14.0-18.0); Mean Corpuscular HGB CONC 34.1 g/dL (32.0-36.0); Mean Corpuscular Hemoglobin 31.3 pg (27.0-31.0); Mean Platelet Volume 9.5 fL (7.4-10.4); Platelet Count 157 10x3/uL (130-400); RBC Distribution Width 16.3 % (11.5-14.5); Red Blood Cell (RBC) Count 2.78 mill/uL (4.70-6.10); White Blood Cell (WBC) Count 8.5 10x3/uL (4.8-10.8)
[2023-08-31 02:11] LABS: Mean Corpuscular Volume 91.7 fl (78.0-98.0)
[2023-08-31 02:46] LABS: Anion Gap 14 mmol/L (10-20); BUN (Urea Nitrogen) 70 mg/dL (8.4-25.7); Calc. Creatinine Clearance 90 mL/min (70-130); Calcium 7.7 mg/dL (7.8-10.44); Carbon Dioxide 16 mmol/L (23-31); Chloride 111 mmol/L (98-107); Estimated GFR 98; Glucose 93 mg/dL (80-115); Potassium 4.3 mmol/L (3.5-5.1); Sodium 137 mmol/L (136-145)
[2023-08-31] MEDS: Pantoprazole 80 MG, Admixture Fee 1 EACH in Sodium Chloride 0.9% 100 ML IVPB SCH ×3 (05:04→21:24)
[2023-08-31] MEDS: Sodium Chloride 0.9% 1,000 ML IV SCH ×2 (05:04→16:48)
[2023-08-31 07:50] LABS: Hematocrit 27.2 % (42.0-52.0); Hemoglobin 9.3 g/dL (14.0-18.0); Platelet Count 150 10x3/uL (130-400)
[2023-08-31] MEDS: Thiamine 100 MG TAB PO SCH (09:23)
[2023-08-31] MEDS: hydrOXYzine 10 MG TAB PO SCH ×2 (09:23→21:21)
[2023-08-31] MEDS: Citalopram 20 MG TAB PO SCH (09:23)
[2023-08-31] MEDS: Benztropine 1 MG TAB PO SCH ×2 (09:23→21:21)
[2023-08-31] MEDS: cefTRIAXone\\ROCEPHIN 1 GM in Sodium Chloride 0.9% 100 ML IVPB SCH (13:28)
[2023-09-01] MEDS: Sodium Chloride 0.9% 1,000 ML IV SCH ×2 (01:23→14:09)
[2023-09-01 03:47] LABS: #Eosinphils 0.5 thou/uL (0.0-0.7); #Monocytes 0.5 thou/uL (0.11-0.59); #Neutrophils 5.4 thou/uL (1.40-6.50); %Basophils 0.4 % (0.0-1.0); %Eosinophils 7.2 % (0.0-10.0); %Lymphocytes 9.1 % (21.0-51.0); %Monocytes 6.8 % (0.0-10.0); %Neutrophils 76.1 % (42.0-75.0); Hematocrit 25.2 % (42.0-52.0); Hemoglobin 8.6 g/dL (14.0-18.0); Mean Corpuscular HGB CONC 34.1 g/dL (32.0-36.0); Mean Corpuscular Hemoglobin 31.4 pg (27.0-31.0); Mean Platelet Volume 9.2 fL (7.4-10.4); Platelet Count 186 10x3/uL (130-400); RBC Distribution Width 16.2 % (11.5-14.5); Red Blood Cell (RBC) Count 2.74 mill/uL (4.70-6.10); White Blood Cell (WBC) Count 7.1 10x3/uL (4.8-10.8)
[2023-09-01 04:16] LABS: Anion Gap 11 mmol/L (10-20); BUN (Urea Nitrogen) 29 mg/dL (8.4-25.7); Calc. Creatinine Clearance 113 mL/min (70-130); Calcium 8.1 mg/dL (7.8-10.44); Carbon Dioxide 21 mmol/L (23-31); Chloride 111 mmol/L (98-107); Estimated GFR 104; Glucose 70 mg/dL (80-115); Potassium 3.8 mmol/L (3.5-5.1); Sodium 139 mmol/L (136-145)
[2023-09-01] MEDS: Benztropine 1 MG TAB PO SCH ×2 (08:54→22:39)
[2023-09-01] MEDS: hydrOXYzine 10 MG TAB PO SCH ×2 (08:54→22:39)
[2023-09-01] MEDS: Citalopram 20 MG TAB PO SCH (08:54)
[2023-09-01] MEDS: Thiamine 100 MG TAB PO SCH (08:54)
[2023-09-01] MEDS: Pantoprazole 80 MG, Admixture Fee 1 EACH in Sodium Chloride 0.9% 100 ML IVPB SCH (09:36)
[2023-09-01] MEDS: cefTRIAXone\\ROCEPHIN 1 GM in Sodium Chloride 0.9% 100 ML IVPB SCH (14:09)
[2023-09-01] MEDS: Pantoprazole 40 MG VIAL IVP SCH (22:43)
[2023-09-02] MEDS: Sodium Chloride 0.9% 1,000 ML IV SCH ×2 (01:07→08:52)
[2023-09-02 06:45] LABS: #Eosinphils 0.4 thou/uL (0.0-0.7); #Monocytes 0.4 thou/uL (0.11-0.59); #Neutrophils 3.7 thou/uL (1.40-6.50); %Basophils 0.4 % (0.0-1.0); %Eosinophils 7.4 % (0.0-10.0); %Lymphocytes 15.8 % (21.0-51.0); %Monocytes 6.9 % (0.0-10.0); %Neutrophils 68.9 % (42.0-75.0); Hematocrit 23.2 % (42.0-52.0); Hemoglobin 7.8 g/dL (14.0-18.0); Mean Corpuscular HGB CONC 33.6 g/dL (32.0-36.0); Mean Corpuscular Hemoglobin 30.8 pg (27.0-31.0); Mean Corpuscular Volume 91.7 fl (78.0-98.0); Mean Platelet Volume 9.6 fL (7.4-10.4); Platelet Count 210 10x3/uL (130-400); RBC Distribution Width 15.3 % (11.5-14.5); Red Blood Cell (RBC) Count 2.53 mill/uL (4.70-6.10); White Blood Cell (WBC) Count 5.4 10x3/uL (4.8-10.8)
[2023-09-02 07:24] LABS: Anion Gap 9 mmol/L (10-20); BUN (Urea Nitrogen) 17 mg/dL (8.4-25.7); Calc. Creatinine Clearance 115 mL/min (70-130); Carbon Dioxide 22 mmol/L (23-31); Chloride 110 mmol/L (98-107); Estimated GFR 105; Glucose 76 mg/dL (80-115); Potassium 3.5 mmol/L (3.5-5.1); Sodium 137 mmol/L (136-145)
[2023-09-02] MEDS: Pantoprazole 40 MG VIAL IVP SCH ×2 (08:51→22:17)
[2023-09-02] MEDS: Citalopram 20 MG TAB PO SCH (08:51)
[2023-09-02] MEDS: Benztropine 1 MG TAB PO SCH ×2 (08:51→22:17)
[2023-09-02] MEDS: hydrOXYzine 10 MG TAB PO SCH ×2 (08:51→22:17)
[2023-09-02] MEDS: Thiamine 100 MG TAB PO SCH (08:51)
[2023-09-03 06:54] LABS: #Eosinphils 0.4 thou/uL (0.0-0.7); #Monocytes 0.3 thou/uL (0.11-0.59); #Neutrophils 4.6 thou/uL (1.40-6.50); %Basophils 0.5 % (0.0-1.0); %Eosinophils 6.5 % (0.0-10.0); %Lymphocytes 14.1 % (21.0-51.0); %Monocytes 5.1 % (0.0-10.0); %Neutrophils 73.3 % (42.0-75.0); Hematocrit 27.4 % (42.0-52.0); Hemoglobin 9.2 g/dL (14.0-18.0); Mean Corpuscular HGB CONC 33.6 g/dL (32.0-36.0); Mean Corpuscular Hemoglobin 31.5 pg (27.0-31.0); Mean Corpuscular Volume 93.8 fl (78.0-98.0); Mean Platelet Volume 9.4 fL (7.4-10.4); Platelet Count 263 10x3/uL (130-400); RBC Distribution Width 15.2 % (11.5-14.5); Red Blood Cell (RBC) Count 2.92 mill/uL (4.70-6.10); White Blood Cell (WBC) Count 6.3 10x3/uL (4.8-10.8)
[2023-09-03 07:30] LABS: Anion Gap 10 mmol/L (10-20); BUN (Urea Nitrogen) 13 mg/dL (8.4-25.7); Calc. Creatinine Clearance 118 mL/min (70-130); Calcium 8.3 mg/dL (7.8-10.44); Carbon Dioxide 24 mmol/L (23-31); Chloride 106 mmol/L (98-107); Estimated GFR 105; Glucose 78 mg/dL (80-115); Potassium 3.7 mmol/L (3.5-5.1); Sodium 136 mmol/L (136-145)
[2023-09-03] MEDS: Thiamine 100 MG TAB PO SCH (08:38)
[2023-09-03] MEDS: Citalopram 20 MG TAB PO SCH (08:38)
[2023-09-03] MEDS: hydrOXYzine 10 MG TAB PO SCH ×2 (08:38→20:24)
[2023-09-03] MEDS: Pantoprazole 40 MG VIAL IVP SCH ×2 (08:38→20:24)
[2023-09-03] MEDS: Benztropine 1 MG TAB PO SCH ×2 (08:39→20:24)
[2023-09-04] MEDS: Benztropine 1 MG TAB PO SCH ×2 (08:38→21:04)
[2023-09-04] MEDS: hydrOXYzine 10 MG TAB PO SCH ×2 (08:39→21:04)
[2023-09-04] MEDS: Thiamine 100 MG TAB PO SCH (08:39)
[2023-09-04] MEDS: Citalopram 20 MG TAB PO SCH (08:39)
[2023-09-04] MEDS: Pantoprazole 40 MG VIAL IVP SCH (08:39)
[2023-09-04 09:12] LABS: #Eosinphils 0.3 thou/uL (0.0-0.7); #Monocytes 0.2 thou/uL (0.11-0.59); #Neutrophils 3.5 thou/uL (1.40-6.50); %Basophils 0.6 % (0.0-1.0); %Eosinophils 6.8 % (0.0-10.0); %Lymphocytes 15.1 % (21.0-51.0); %Monocytes 4.6 % (0.0-10.0); %Neutrophils 72.5 % (42.0-75.0); Hematocrit 27.5 % (42.0-52.0); Hemoglobin 9.4 g/dL (14.0-18.0); Mean Corpuscular HGB CONC 34.2 g/dL (32.0-36.0); Mean Corpuscular Hemoglobin 31.8 pg (27.0-31.0); Mean Corpuscular Volume 92.9 fl (78.0-98.0); Mean Platelet Volume 9.2 fL (7.4-10.4); Platelet Count 305 10x3/uL (130-400); RBC Distribution Width 14.7 % (11.5-14.5); Red Blood Cell (RBC) Count 2.96 mill/uL (4.70-6.10); White Blood Cell (WBC) Count 4.8 10x3/uL (4.8-10.8)
[2023-09-04 10:48] LABS: Anion Gap 14 mmol/L (10-20); BUN (Urea Nitrogen) 9 mg/dL (8.4-25.7); Calc. Creatinine Clearance 119 mL/min (70-130); Calcium 8.4 mg/dL (7.8-10.44); Carbon Dioxide 25 mmol/L (23-31); Chloride 102 mmol/L (98-107); Estimated GFR 104; Glucose 77 mg/dL (80-115); Sodium 137 mmol/L (136-145)
[2023-09-05] MEDS: Citalopram 20 MG TAB PO SCH (08:28)
[2023-09-05] MEDS: Benztropine 1 MG TAB PO SCH ×2 (08:28→20:07)
[2023-09-05] MEDS: Thiamine 100 MG TAB PO SCH (08:28)
[2023-09-05] MEDS: Amlodipine 5 MG TAB PO SCH (08:28)
[2023-09-05] MEDS: hydrOXYzine 10 MG TAB PO SCH ×2 (08:28→20:08)
[2023-09-06] MEDS: hydrOXYzine 10 MG TAB PO SCH ×2 (09:20→20:47)
[2023-09-06] MEDS: Benztropine 1 MG TAB PO SCH ×2 (09:20→20:47)
[2023-09-06] MEDS: Citalopram 20 MG TAB PO SCH (09:20)
[2023-09-06] MEDS: Thiamine 100 MG TAB PO SCH (09:20)
[2023-09-06] MEDS: Amlodipine 5 MG TAB PO SCH (09:20)
[2023-09-07 00:45] VITALS: TEMP 97.6
[2023-09-07] MEDS: Benztropine 1 MG TAB PO SCH (09:44)
[2023-09-07] MEDS: Thiamine 100 MG TAB PO SCH (09:45)
[2023-09-07] MEDS: Citalopram 20 MG TAB PO SCH (09:45)
[2023-09-07] MEDS: Amlodipine 5 MG TAB PO SCH (09:45)
[2023-09-07] MEDS: hydrOXYzine 10 MG TAB PO SCH (09:45)
[2023-09-07 18:28] VITALS: BP 136/78
== END 2023-09-07 18:20 | DRG 640 ==
LOC: ERS 15:16 → 2SE 18:35 → OBSVTOIN 08-27 16:59 → T4-B 08-28 16:32 → T4-A 08-29 22:07 → CCU 08-30 13:34 → T4-A 09-01 08:23
PROVIDERS: ADMIT Student in an Organized Health Care Education/Training Program; ATTEND Hospitalist
PROC: 4A00X4Z Measurement of Central Nervous Electrical Activity, External Approach (ICD-10-PCS; principal; 2023-08-27)
PROC: 0W3P8ZZ Control Bleeding in Gastrointestinal Tract, Via Natural or Artificial Opening Endoscopic (ICD-10-PCS; 2023-08-30)
PROC: 3E033XZ Introduction of Vasopressor into Peripheral Vein, Percutaneous Approach (ICD-10-PCS; 2023-08-30)
PROC: 30233N1 Transfusion of Nonautologous Red Blood Cells into Peripheral Vein, Percutaneous Approach (ICD-10-PCS; 2023-08-30)
PROC: 4A133R1 Monitoring of Arterial Saturation, Peripheral, Percutaneous Approach (ICD-10-PCS; 2023-08-30)
PROC: 30233J1 Transfusion of Nonautologous Serum Albumin into Peripheral Vein, Percutaneous Approach (ICD-10-PCS; 2023-08-30)
PROC: 5A1935Z Respiratory Ventilation, Less than 24 Consecutive Hours (ICD-10-PCS; 2023-08-30)
PROC: 0BH17EZ Insertion of Endotracheal Airway into Trachea, Via Natural or Artificial Opening (ICD-10-PCS; 2023-08-30)
DX: E87.1 Hypo-osmolality and hyponatremia (principal); G93.41 Metabolic encephalopathy; K25.4 Chronic or unspecified gastric ulcer with hemorrhage; J96.01 Acute respiratory failure with hypoxia; S06.31AA Contusion and laceration of right cerebrum with loss of consciousness status unknown, initial encounter; R57.8 Other shock; D62 Acute posthemorrhagic anemia; I95.9 Hypotension, unspecified; R26.81 Unsteadiness on feet; R22.0 Localized swelling, mass and lump, head; Z79.899 Other long term (current) drug therapy; S09.93XA Unspecified injury of face, initial encounter; R47.1 Dysarthria and anarthria; R13.10 Dysphagia, unspecified; W19.XXXA Unspecified fall, initial encounter; R41.0 Disorientation, unspecified; N18.1 Chronic kidney disease, stage 1; D63.1 Anemia in chronic kidney disease; I12.9 Hypertensive chronic kidney disease with stage 1 through stage 4 chronic kidney disease, or unspecified chronic kidney disease; H10.9 Unspecified conjunctivitis; F31.9 Bipolar disorder, unspecified; F20.9 Schizophrenia, unspecified; E66.9 Obesity, unspecified; Z68.22 Body mass index [BMI] 22.0-22.9, adult
CPT/HCPCS: 36415; 36430; 36600; 51701; 70450; 70486; 70553; 72125; 80048; 80053; 80061; 80306; 80307; 81001; 82274; 82607; 82805; 83036; 83605; 83735; 83930; 83935; 84300; 84425; 84443; 84484; 85014; 85018; 85025; 85049; 85610; 85730; 86780; 86850; 86900; 86901; 87389; 93005; 93306; 94002; 94003; 95816; 95819; 96372; A9579; C9113; G0378; J0171; J0696; J1630; J1650; J2060; J2272; J2704; J3010; J3490; J7030; J7050; P9016; P9045

== ENCOUNTER 2023-09-08 12:47 | Emergency (ER) | payer OTHER ==
[2023-09-08 13:22] LABS: #Eosinphils 0.3 thou/uL (0.0-0.7); #Monocytes 0.4 thou/uL (0.11-0.59); #Neutrophils 5.4 thou/uL (1.40-6.50); %Basophils 0.4 % (0.0-1.0); %Eosinophils 4.7 % (0.0-10.0); %Lymphocytes 8.3 % (21.0-51.0); %Monocytes 5.9 % (0.0-10.0); %Neutrophils 80.3 % (42.0-75.0); Hematocrit 31.9 % (42.0-52.0); Hemoglobin 10.7 g/dL (14.0-18.0); Mean Corpuscular HGB CONC 33.5 g/dL (32.0-36.0); Mean Corpuscular Hemoglobin 31.1 pg (27.0-31.0); Mean Corpuscular Volume 92.7 fl (78.0-98.0); Mean Platelet Volume 8.8 fL (7.4-10.4); Platelet Count 422 10x3/uL (130-400); RBC Distribution Width 15.3 % (11.5-14.5); Red Blood Cell (RBC) Count 3.44 mill/uL (4.70-6.10); White Blood Cell (WBC) Count 6.8 10x3/uL (4.8-10.8)
[2023-09-08 13:54] LABS: ALT (SGPT) 25 U/L (8-55); AST (SGOT) 19 U/L (5-34); Albumin 4.6 g/dL (3.4-4.8); Alkaline Phosphatase 73 U/L (40-110); Anion Gap 14 mmol/L (10-20); BUN (Urea Nitrogen) 24 mg/dL (8.4-25.7); Bilirubin, Total 0.7 mg/dL (0.2-1.2); Calc. Creatinine Clearance 0 mL/min (70-130); Calcium 9.6 mg/dL (7.8-10.44); Carbon Dioxide 26 mmol/L (23-31); Chloride 96 mmol/L (98-107); Estimated GFR 86; Globulin 2.1 g/dL (2.4-3.5); Glucose 77 mg/dL (80-115); Potassium 4.8 mmol/L (3.5-5.1); Protein, Total 6.7 g/dL (5.8-8.1); Sodium 131 mmol/L (136-145)
== END 2023-09-08 14:27 ==
LOC: ERS 12:47
DX: G40.89 Other seizures (principal); I10 Essential (primary) hypertension; E87.1 Hypo-osmolality and hyponatremia; K21.9 Gastro-esophageal reflux disease without esophagitis
CPT/HCPCS: 70450; 80053; 85025

== ENCOUNTER 2024-04-03 12:43 | Outpatient (CLI) | payer MEDICARE, MEDICAID | END 2024-04-03 12:44 | disposition home or self-care (01) | LOC: CT 12:43 | PROVIDERS: ATTEND Neurological Surgery | DX: G96.00 Cerebrospinal fluid leak, unspecified (principal); R90.89 Other abnormal findings on diagnostic imaging of central nervous system | CPT/HCPCS: 70450 ==

== ENCOUNTER 2024-06-07 12:36 | Inpatient (IN) | payer MEDICARE, MEDICAID ==
[2024-06-07 14:33] LABS: #Basophils 0.03 10x3/uL (0.0-0.2); %Basophils 0.1 % (0.0-1.0); %Eosinophils 0.3 % (0.0-10.0); %Lymphocytes 3.6 % (21.0-51.0); %Neutrophils 87.7 % (42.0-75.0); Hematocrit 34.6 % (42.0-52.0); Hemoglobin 11.3 g/dL (14.0-18.0); Mean Corpuscular HGB CONC 32.7 g/dL (32.0-36.0); Mean Corpuscular Hemoglobin 30.2 pg (27.0-31.0); Mean Corpuscular Volume 92.5 fL (78.0-98.0); Mean Platelet Volume 9.3 fL (7.4-10.4); Platelet Count 376 10x3/uL (130-400); RBC Distribution Width 14.4 % (11.5-14.5); Red Blood Cell (RBC) Count 3.74 mill/uL (4.70-6.10)
[2024-06-07 15:03] LABS: Critical Call Chemistry NUR.KVR@1500
[2024-06-07 15:04] LABS: ALT (SGPT) 29 U/L (8-55); AST (SGOT) 20 U/L (5-34); Albumin 3.6 g/dL (3.4-4.8); Alkaline Phosphatase 86 U/L (40-110); Anion Gap 14 mmol/L (10-20); BUN (Urea Nitrogen) 56 mg/dL (8.4-25.7); Bilirubin, Total 0.5 mg/dL (0.2-1.2); Calc. Creatinine Clearance 0 mL/min (70-130); Calcium 9.7 mg/dL (7.8-10.44); Carbon Dioxide 26 mmol/L (23-31); Chloride 121 mmol/L (98-107); Estimated GFR 69; Globulin 3.3 g/dL (2.4-3.5); Glucose 117 mg/dL (80-115); Potassium 3.6 mmol/L (3.5-5.1); Protein, Total 6.9 g/dL (5.8-8.1); Sodium 157 mmol/L (136-145); Troponin I 0.021 ng/mL (< 0.028)
[2024-06-07] MEDS ORDERED: cefTRIAXone (ROCEPHIN) 1 GM VIAL ONE (15:44)
[2024-06-07] MEDS ORDERED: Sodium Chloride 0.9% 100 ML ONE (15:44)
[2024-06-07] MEDS ORDERED: Albuterol 200 PUFF (6.7GM INHALER) INH PRN (16:41)
[2024-06-07] MEDS ORDERED: Acetaminophen 650 MG Suppository PR PRN (16:41)
[2024-06-07] MEDS ORDERED: Acetaminophen 325 MG TAB PO PRN (16:41)
[2024-06-07] MEDS ORDERED: Benzonatate 100 MG CAP PO PRN (16:41)
[2024-06-07] MEDS ORDERED: REMDESIVIR 200 MG in Sodium Chloride 0.9% 250 ML 210 ML IV SCH (18:00)
[2024-06-07] MEDS: Sodium Chloride 0.45% 1,000 ML IV SCH (18:01)
[2024-06-07 18:39] VITALS: BMI 24.0
[2024-06-07] MEDS ORDERED: Acetaminophen 325 MG TAB ONE (18:42)
[2024-06-07 18:57] LABS: Anion Gap 14 mmol/L (10-20); BUN (Urea Nitrogen) 49 mg/dL (8.4-25.7); Calc. Creatinine Clearance 82 mL/min (70-130); Calcium 8.8 mg/dL (7.8-10.44); Carbon Dioxide 21 mmol/L (23-31); Chloride 123 mmol/L (98-107); Estimated GFR 92; Glucose 191 mg/dL (80-115); Potassium 4.2 mmol/L (3.5-5.1); Sodium 154 mmol/L (136-145)
[2024-06-07] MEDS: Acetaminophen 325 MG TAB PO SCH (19:28)
[2024-06-07 21:31] LABS: Anion Gap 12 mmol/L (10-20); BUN (Urea Nitrogen) 50 mg/dL (8.4-25.7); Calc. Creatinine Clearance 93 mL/min (70-130); Calcium 8.9 mg/dL (7.8-10.44); Carbon Dioxide 21 mmol/L (23-31); Chloride 123 mmol/L (98-107); Estimated GFR 97; Glucose 117 mg/dL (80-115); Sodium 153 mmol/L (136-145)
[2024-06-07] MEDS: Benztropine 1 MG TAB PO SCH (22:36)
[2024-06-07] MEDS: Doxycycline 100 MG in Sodium Chloride 0.9% 100 ML IVPB SCH (22:36)
[2024-06-07] MEDS: Mirtazapine 15 MG TAB PO SCH (22:36)
[2024-06-07] MEDS: hydrOXYzine 25 MG TAB PO SCH (22:36)
[2024-06-07] MEDS: Potassium Chloride 20 MEQ in Premix 1 BAG IVPB SCH (22:36)
[2024-06-08] MEDS: Sodium Chloride 0.45% 1,000 ML IV SCH ×2 (01:25→01:45)
[2024-06-08 01:29] LABS: Anion Gap 16 mmol/L (10-20); BUN (Urea Nitrogen) 48 mg/dL (8.4-25.7); Calc. Creatinine Clearance 89 mL/min (70-130); Calcium 9.2 mg/dL (7.8-10.44); Carbon Dioxide 20 mmol/L (23-31); Chloride 122 mmol/L (98-107); Estimated GFR 96; Glucose 118 mg/dL (80-115); Potassium 3.2 mmol/L (3.5-5.1); Sodium 155 mmol/L (136-145)
[2024-06-08 04:12] LABS: #Basophils 0.03 10x3/uL (0.0-0.2); #Eosinphils Less than 0.03 10x3/uL (0.0-0.7); %Basophils 0.2 % (0.0-1.0); %Eosinophils 0.1 % (0.0-10.0); %Lymphocytes 5.7 % (21.0-51.0); %Monocytes 7.1 % (0.0-10.0); %Neutrophils 85.7 % (42.0-75.0); Hematocrit 29.5 % (42.0-52.0); Hemoglobin 9.6 g/dL (14.0-18.0); Mean Corpuscular HGB CONC 32.5 g/dL (32.0-36.0); Mean Corpuscular Hemoglobin 30.9 pg (27.0-31.0); Mean Corpuscular Volume 94.9 fL (78.0-98.0); Mean Platelet Volume 9.2 fL (7.4-10.4); Platelet Count 301 10x3/uL (130-400); RBC Distribution Width 14.6 % (11.5-14.5); Red Blood Cell (RBC) Count 3.11 mill/uL (4.70-6.10)
[2024-06-08 04:37] LABS: ALT (SGPT) 26 U/L (8-55); AST (SGOT) 19 U/L (5-34); Albumin 2.7 g/dL (3.4-4.8); Alkaline Phosphatase 71 U/L (40-110); Anion Gap 12 mmol/L (10-20); BUN (Urea Nitrogen) 48 mg/dL (8.4-25.7); Bilirubin, Total 0.4 mg/dL (0.2-1.2); Calc. Creatinine Clearance 90 mL/min (70-130); Calcium 8.7 mg/dL (7.8-10.44); Carbon Dioxide 20 mmol/L (23-31); Chloride 124 mmol/L (98-107); Estimated GFR 96; Globulin 3.4 g/dL (2.4-3.5); Glucose 114 mg/dL (80-115); Magnesium 2.3 mg/dL (1.6-2.6); Potassium 3.2 mmol/L (3.5-5.1); Protein, Total 6.1 g/dL (5.8-8.1); Sodium 153 mmol/L (136-145)
[2024-06-08] MEDS: Potassium Chloride 20 MEQ in Premix 1 BAG IVPB SCH (05:26)
[2024-06-08] MEDS ORDERED: REMDESIVIR 100 MG in Sodium Chloride 0.9% 250 ML 230 ML IV SCH (06:00)
[2024-06-08 06:31] LABS: Anion Gap 12 mmol/L (10-20); BUN (Urea Nitrogen) 43 mg/dL (8.4-25.7); Calc. Creatinine Clearance 106 mL/min (70-130); Calcium 9.1 mg/dL (7.8-10.44); Carbon Dioxide 21 mmol/L (23-31); Chloride 124 mmol/L (98-107); Estimated GFR 101; Glucose 111 mg/dL (80-115); Potassium 3.4 mmol/L (3.5-5.1); Sodium 154 mmol/L (136-145)
[2024-06-08] MEDS ORDERED: Potassium Chloride 20 MEQ in Premix 1 BAG IVPB SCH (06:45)
[2024-06-08 06:48] LABS: Bacteria/HPF None Seen HPF (None Seen); Bilirubin Negative (Negative); Blood, Urine Negative (Negative); CAUTI Indications for Culture Alt mental st,lethar; Clarity Clear (Clear); Glucose, Urine (Dipstick) Normal (Negative); Ketone, Urine Negative (Negative); Leukocyte Negative Leu/uL (Negative); Nitrite Negative (Negative); Protein, Urine (Dipstick) 30 mg/dL (Neg-Trace); RBC/HPF 0-3 HPF (0-3); Specific Gravity, Urine 1.025 (1.002-1.036); Squamous Epithelial None Seen HPF (0-3); Urobilinogen Normal mg/dL (Less than 2); WBC/HPF 0-3 HPF (0-3); pH, Urine 5.5 (5.0-9.0)
[2024-06-08 06:50] LABS: Urine Culture Reflex No No
[2024-06-08] MEDS ORDERED: Dexamethasone 10 MG/ML VIAL SLOW IVP SCH (09:00)
[2024-06-08 09:41] LABS: Anion Gap 13 mmol/L (10-20); BUN (Urea Nitrogen) 41 mg/dL (8.4-25.7); Calc. Creatinine Clearance 93 mL/min (70-130); Calcium 9.5 mg/dL (7.8-10.44); Carbon Dioxide 23 mmol/L (23-31); Chloride 124 mmol/L (98-107); Critical Call Chemistry NUR.BM6t; Estimated GFR 97; Glucose 102 mg/dL (80-115); Potassium 3.7 mmol/L (3.5-5.1); Sodium 156 mmol/L (136-145)
[2024-06-08] MEDS: Enoxaparin 40 MG (0.4 mL) SYRINGE SC SCH (10:18)
[2024-06-08] MEDS: Thiamine 100 MG TAB PO SCH (10:19)
[2024-06-08] MEDS: Pantoprazole DR 40 MG TAB PO SCH (10:19)
[2024-06-08] MEDS ORDERED: cefTRIAXone\\ROCEPHIN 1 GM in Sodium Chloride 0.9% 100 ML IVPB SCH (12:00)
[2024-06-08] MEDS: cefTRIAXone\\ROCEPHIN 1 GM in Sodium Chloride 0.9% 100 ML IVPB SCH (16:38)
[2024-06-08 21:30] LABS: Sodium 150 mmol/L (136-145)
[2024-06-08] MEDS: Dextrose 5% in Water 1,000 ML IV SCH (21:52)
[2024-06-09 07:14] LABS: Anion Gap 11 mmol/L (10-20); BUN (Urea Nitrogen) 27 mg/dL (8.4-25.7); Calc. Creatinine Clearance 115 mL/min (70-130); Calcium 8.9 mg/dL (7.8-10.44); Carbon Dioxide 22 mmol/L (23-31); Chloride 123 mmol/L (98-107); Critical Call Chemistry NUR.LG7; Estimated GFR 103; Glucose 93 mg/dL (80-115); Potassium 3.3 mmol/L (3.5-5.1); Sodium 153 mmol/L (136-145)
[2024-06-09] MEDS: Potassium Chloride 20 MEQ TAB PO SCH (12:00)
[2024-06-09] MEDS: Dextrose 5% in Water 1,000 ML IV SCH (15:29)
[2024-06-09 19:47] LABS: Anion Gap 16 mmol/L (10-20); BUN (Urea Nitrogen) 26 mg/dL (8.4-25.7); Calc. Creatinine Clearance 115 mL/min (70-130); Calcium 9.1 mg/dL (7.8-10.44); Carbon Dioxide 20 mmol/L (23-31); Chloride 121 mmol/L (98-107); Estimated GFR 103; Glucose 138 mg/dL (80-115); Potassium 3.7 mmol/L (3.5-5.1); Sodium 153 mmol/L (136-145)
[2024-06-10 05:31] LABS: #Basophils 0.05 10x3/uL (0.0-0.2); %Basophils 0.4 % (0.0-1.0); %Eosinophils 4.4 % (0.0-10.0); %Lymphocytes 6.3 % (21.0-51.0); %Monocytes 4.1 % (0.0-10.0); %Neutrophils 84.2 % (42.0-75.0); Hematocrit 31.8 % (42.0-52.0); Hemoglobin 10.1 g/dL (14.0-18.0); Mean Corpuscular HGB CONC 31.8 g/dL (32.0-36.0); Mean Corpuscular Hemoglobin 29.6 pg (27.0-31.0); Mean Corpuscular Volume 93.3 fL (78.0-98.0); Mean Platelet Volume 9.7 fL (7.4-10.4); Platelet Count 326 10x3/uL (130-400); RBC Distribution Width 14.6 % (11.5-14.5); Red Blood Cell (RBC) Count 3.41 mill/uL (4.70-6.10)
[2024-06-10 05:51] LABS: Anion Gap 11 mmol/L (10-20); BUN (Urea Nitrogen) 21 mg/dL (8.4-25.7); Calc. Creatinine Clearance 123 mL/min (70-130); Calcium 8.9 mg/dL (7.8-10.44); Carbon Dioxide 21 mmol/L (23-31); Chloride 120 mmol/L (98-107); Estimated GFR 105; Glucose 101 mg/dL (80-115); Potassium 3.9 mmol/L (3.5-5.1); Sodium 148 mmol/L (136-145)
[2024-06-10 10:56] LABS: Magnesium 2.1 mg/dL (1.6-2.6)
[2024-06-10 12:16] LABS: Anion Gap 10 mmol/L (10-20); BUN (Urea Nitrogen) 20 mg/dL (8.4-25.7); Calc. Creatinine Clearance 127 mL/min (70-130); Calcium 8.7 mg/dL (7.8-10.44); Carbon Dioxide 20 mmol/L (23-31); Chloride 120 mmol/L (98-107); Estimated GFR 106; Glucose 102 mg/dL (80-115); Sodium 146 mmol/L (136-145)
[2024-06-11] MEDS: traMADol HCl 50 MG TAB PO PRN (10:55)
[2024-06-11 12:50] LABS: Chloride 115 mmol/L (98-107); Potassium 3.7 mmol/L (3.5-5.1); Sodium 148 mmol/L (136-145)
[2024-06-11 12:51] LABS: Calcium 8.3 mg/dL (7.8-10.44); Glucose 129 mg/dL (80-115)
[2024-06-11 12:53] LABS: Anion Gap 12 mmol/L (10-20); Carbon Dioxide 25 mmol/L (23-31)
[2024-06-11 12:55] LABS: BUN (Urea Nitrogen) 18 mg/dL (8.4-25.7); Calc. Creatinine Clearance 121 mL/min (70-130); Estimated GFR 104
[2024-06-11] MEDS: Lidocaine 1% w/Epinephrine 1:100K 20 ML VIAL ONE (15:00)
[2024-06-11] MEDS: Morphine 2 MG/ML VIAL SLOW IVP PRN (15:58)
[2024-06-12 06:46] LABS: Anion Gap 9 mmol/L (10-20); BUN (Urea Nitrogen) 19 mg/dL (8.4-25.7); Calc. Creatinine Clearance 143 mL/min (70-130); Calcium 8.5 mg/dL (7.8-10.44); Carbon Dioxide 25 mmol/L (23-31); Chloride 114 mmol/L (98-107); Estimated GFR 109; Glucose 109 mg/dL (80-115); Potassium 3.8 mmol/L (3.5-5.1); Sodium 144 mmol/L (136-145)
[2024-06-12] MEDS: Morphine 2 MG/ML VIAL SLOW IVP SCH (12:18)
[2024-06-13 06:52] LABS: #Basophils 0.05 10x3/uL (0.0-0.2); %Basophils 0.6 % (0.0-1.0); %Eosinophils 7.2 % (0.0-10.0); %Lymphocytes 12.5 % (21.0-51.0); %Monocytes 6.2 % (0.0-10.0); %Neutrophils 70.6 % (42.0-75.0); Hematocrit 29.5 % (42.0-52.0); Hemoglobin 9.6 g/dL (14.0-18.0); Mean Corpuscular HGB CONC 32.5 g/dL (32.0-36.0); Mean Corpuscular Hemoglobin 29.9 pg (27.0-31.0); Mean Corpuscular Volume 91.9 fL (78.0-98.0); Mean Platelet Volume 10.1 fL (7.4-10.4); Platelet Count 310 10x3/uL (130-400); Red Blood Cell (RBC) Count 3.21 mill/uL (4.70-6.10)
[2024-06-13 07:14] LABS: Anion Gap 10 mmol/L (10-20); BUN (Urea Nitrogen) 16 mg/dL (8.4-25.7); Calc. Creatinine Clearance 138 mL/min (70-130); Calcium 8.5 mg/dL (7.8-10.44); Carbon Dioxide 28 mmol/L (23-31); Chloride 109 mmol/L (98-107); Estimated GFR 108; Glucose 94 mg/dL (80-115); Sodium 143 mmol/L (136-145)
[2024-06-13] MEDS: Amlodipine 10 MG TAB PO SCH (08:41)
[2024-06-13] MEDS: Lisinopril 10 MG TAB PO SCH (08:42)
[2024-06-13] MEDS ORDERED: Cephalexin 250 MG CAP PO SCH ×2 (16:00→23:59)
[2024-06-13] MEDS: Cephalexin 250 MG CAP PO SCH (17:04)
[2024-06-13 17:12] VITALS: BMI 24.7
[2024-06-13] MEDS: Methocarbamol 500 MG TAB PO PRN (21:12)
[2024-06-14] MEDS: Morphine 2 MG/ML VIAL SLOW IVP SCH (09:35)
[2024-06-14 12:13] VITALS: BP 138/81; TEMP 97.5
[2024-06-29] MEDS ORDERED: PALIPERIDONE PALMITATE 117 MG/0.75 ML IM SCH (09:00)
== END 2024-06-14 15:00 | DRG 853 ==
LOC: ERS 12:36 → ERHOLD 15:45 → IMCU/EMU 21:10 → T4-A 06-12 07:05
PROVIDERS: ADMIT Internal Medicine; ATTEND Hospitalist
PROC: 3E03329 Introduction of Other Anti-infective into Peripheral Vein, Percutaneous Approach (ICD-10-PCS; 2024-06-07)
PROC: XW033E5 Introduction of Remdesivir Anti-infective into Peripheral Vein, Percutaneous Approach, New Technology Group 5 (ICD-10-PCS; 2024-06-08)
PROC: 8E0ZXY6 Isolation (ICD-10-PCS; 2024-06-08)
PROC: 3E0333Z Introduction of Anti-inflammatory into Peripheral Vein, Percutaneous Approach (ICD-10-PCS; 2024-06-08)
PROC: 0JB60ZZ Excision of Chest Subcutaneous Tissue and Fascia, Open Approach (ICD-10-PCS; principal; 2024-06-11)
PROC: 0J960ZZ Drainage of Chest Subcutaneous Tissue and Fascia, Open Approach (ICD-10-PCS; 2024-06-11)
PROC: 0J970ZZ Drainage of Back Subcutaneous Tissue and Fascia, Open Approach (ICD-10-PCS; 2024-06-11)
PROC: 3E033XZ Introduction of Vasopressor into Peripheral Vein, Percutaneous Approach (ICD-10-PCS; 2024-06-11)
DX: A41.9 Sepsis, unspecified organism (principal); G93.41 Metabolic encephalopathy; J12.82 Pneumonia due to coronavirus disease 2019; U07.1 COVID-19; E87.0 Hyperosmolality and hypernatremia; L02.212 Cutaneous abscess of back [any part, except buttock and flank]; Z66 Do not resuscitate; E87.8 Other disorders of electrolyte and fluid balance, not elsewhere classified; F31.9 Bipolar disorder, unspecified; K21.9 Gastro-esophageal reflux disease without esophagitis; F20.9 Schizophrenia, unspecified; F03.90 Unspecified dementia, unspecified severity, without behavioral disturbance, psychotic disturbance, mood disturbance, and anxiety; I12.9 Hypertensive chronic kidney disease with stage 1 through stage 4 chronic kidney disease, or unspecified chronic kidney disease; I95.9 Hypotension, unspecified; L08.9 Local infection of the skin and subcutaneous tissue, unspecified; R29.6 Repeated falls; L72.3 Sebaceous cyst; N18.9 Chronic kidney disease, unspecified; D63.1 Anemia in chronic kidney disease; Z79.899 Other long term (current) drug therapy
CPT/HCPCS: 36415; 70450; 71045; 80048; 80053; 81001; 83605; 83735; 83880; 84145; 84484; 85025; 87040; 96374; 96375; 97139; J0696; J1650; J2272; J3480; J7070

== ENCOUNTER 2024-10-17 17:22 | Inpatient (IN) | payer MEDICARE, OTHER ==
[~2024-10-17 17:22] MED LIST: Iopamidol-370 76% 500 ML MDV (1 ML CHARGE) ONE
[2024-10-17] MEDS ORDERED: NOREPINEPHRINE 8 MG/250 ML-D5W 250 ML ONE (17:52)
[2024-10-17 18:56] LABS: #Basophils 0.06 10x3/uL (0.0-0.2); %Basophils 0.4 % (0.0-1.0); %Eosinophils 3.1 % (0.0-10.0); %Lymphocytes 5.4 % (21.0-51.0); %Monocytes 5.4 % (0.0-10.0); Hematocrit 35.7 % (42.0-52.0); Hemoglobin 12.1 g/dL (14.0-18.0); Mean Corpuscular HGB CONC 33.9 g/dL (32.0-36.0); Mean Corpuscular Hemoglobin 29.1 pg (27.0-31.0); Mean Corpuscular Volume 85.8 fL (78.0-98.0); Mean Platelet Volume 8.5 fL (7.4-10.4); Platelet Count 327 10x3/uL (130-400); RBC Distribution Width 15.9 % (11.5-14.5); Red Blood Cell (RBC) Count 4.16 mill/uL (4.70-6.10)
[2024-10-17 19:12] LABS: ALT (SGPT) 15 U/L (8-55); AST (SGOT) 21 U/L (5-34); Albumin 3.9 g/dL (3.4-4.8); Alkaline Phosphatase 112 U/L (40-110); Anion Gap 19 mmol/L (10-20); BUN (Urea Nitrogen) 31 mg/dL (8.4-25.7); Bilirubin, Total 0.4 mg/dL (0.2-1.2); Calc. Creatinine Clearance 0 mL/min (70-130); Calcium 9.4 mg/dL (7.8-10.44); Carbon Dioxide 18 mmol/L (23-31); Chloride 95 mmol/L (98-107); Estimated GFR 71; Globulin 3.3 g/dL (2.4-3.5); Glucose 139 mg/dL (80-115); Potassium 4.9 mmol/L (3.5-5.1); Protein, Total 7.2 g/dL (5.8-8.1); Sodium 127 mmol/L (136-145)
[2024-10-17 19:14] LABS: INR-International Normal Ratio 0.9; Prothrombin Time 12.4 sec (12.0-14.7)
[2024-10-17 19:15] LABS: PTT 30.2 sec (22.9-36.1)
[2024-10-17 19:16] LABS: Troponin I 0.028 ng/mL (< 0.028)
[2024-10-17] MEDS ORDERED: Lidocaine 1% PF 5 ML VIAL ONE (19:17)
[2024-10-17] MEDS ORDERED: Sodium Chloride 0.9% 100 ML ONE (19:18)
[2024-10-17] MEDS ORDERED: Piperacillin/Tazobactam 4.5 GM VIAL ONE (19:18)
[2024-10-17] MEDS ORDERED: Ondansetron PF 4 MG/2 ML Vial IVP PRN (21:55)
[2024-10-17] MEDS ORDERED: Acetaminophen 650 MG Suppository PR PRN (21:55)
[2024-10-17] MEDS ORDERED: Acetaminophen 325 MG TAB PO PRN (21:55)
[2024-10-17] MEDS ORDERED: Ondansetron ODT 4 MG TAB PO PRN (21:55)
[2024-10-17] MEDS ORDERED: NOREPINEPHRINE 8 MG/250 ML-D5W 250 ML IVPB SCH (22:00)
[2024-10-17] MEDS: Vancomycin (BATCH) 2 GM in Premix 1 BAG IVPB SCH (22:50)
[2024-10-17] MEDS: Sodium Chloride 0.9% 1,000 ML IV SCH (22:54)
[2024-10-17 23:24] LABS: Anion Gap 15 mmol/L (10-20); BUN (Urea Nitrogen) 29 mg/dL (8.4-25.7); Calc. Creatinine Clearance 80 mL/min (70-130); Calcium 8.7 mg/dL (7.8-10.44); Carbon Dioxide 19 mmol/L (23-31); Chloride 100 mmol/L (98-107); Estimated GFR 89; Glucose 119 mg/dL (80-115); Potassium 4.6 mmol/L (3.5-5.1); Sodium 129 mmol/L (136-145)
[2024-10-18] MEDS: Piperacillin/Tazobactam 3.375 GM in Sodium Chloride 0.9% 100 ML IVPB SCH (00:19)
[2024-10-18 01:15] LABS: Campy jejuni + coli by PCR Negative (Negative); STEC Shiga Toxin 1+2 Negative (Negative); Salmonella spp. by PCR Negative (Negative); Shigella spp + EIEC by PCR Negative (Negative)
[2024-10-18 04:13] LABS: #Basophils Less than 0.03 10x3/uL (0.0-0.2); %Basophils 0.2 % (0.0-1.0); %Lymphocytes 4.9 % (21.0-51.0); %Monocytes 5.7 % (0.0-10.0); Hematocrit 31.4 % (42.0-52.0); Hemoglobin 10.7 g/dL (14.0-18.0); Mean Corpuscular HGB CONC 34.1 g/dL (32.0-36.0); Mean Corpuscular Hemoglobin 28.8 pg (27.0-31.0); Mean Corpuscular Volume 84.6 fL (78.0-98.0); Mean Platelet Volume 8.7 fL (7.4-10.4); Platelet Count 261 10x3/uL (130-400); RBC Distribution Width 15.9 % (11.5-14.5); Red Blood Cell (RBC) Count 3.71 mill/uL (4.70-6.10)
[2024-10-18 06:47] LABS: ALT (SGPT) 29 U/L (8-55); AST (SGOT) 84 U/L (5-34); Albumin 3.4 g/dL (3.4-4.8); Alkaline Phosphatase 88 U/L (40-110); Anion Gap 16 mmol/L (10-20); BUN (Urea Nitrogen) 27 mg/dL (8.4-25.7); Bilirubin, Total 0.3 mg/dL (0.2-1.2); Calc. Creatinine Clearance 90 mL/min (70-130); Calcium 8.8 mg/dL (7.8-10.44); Carbon Dioxide 19 mmol/L (23-31); Chloride 102 mmol/L (98-107); Estimated GFR 96; Globulin 2.8 g/dL (2.4-3.5); Glucose 100 mg/dL (80-115); Potassium 4.8 mmol/L (3.5-5.1); Protein, Total 6.2 g/dL (5.8-8.1); Sodium 132 mmol/L (136-145)
[2024-10-18 08:55] LABS: Anion Gap 12 mmol/L (10-20); BUN (Urea Nitrogen) 24 mg/dL (8.4-25.7); Calc. Creatinine Clearance 97 mL/min (70-130); Calcium 8.3 mg/dL (7.8-10.44); Carbon Dioxide 20 mmol/L (23-31); Chloride 104 mmol/L (98-107); Estimated GFR 98; Glucose 90 mg/dL (80-115); Potassium 4.3 mmol/L (3.5-5.1); Sodium 132 mmol/L (136-145)
[2024-10-18] MEDS: FLU (Fluad Triv) TS24-25 (65UP)/MF59C/PF 45 MCG/0.5 ML Syringe IM ONE (08:59)
[2024-10-18] MEDS: Famotidine/PF 20 mg/2ml Vial SLOW IVP SCH (08:59)
[2024-10-18 11:42] LABS: Anion Gap 11 mmol/L (10-20); BUN (Urea Nitrogen) 22 mg/dL (8.4-25.7); Calc. Creatinine Clearance 106 mL/min (70-130); Calcium 8.2 mg/dL (7.8-10.44); Carbon Dioxide 20 mmol/L (23-31); Chloride 105 mmol/L (98-107); Estimated GFR 101; Glucose 87 mg/dL (80-115); Potassium 4.3 mmol/L (3.5-5.1); Sodium 132 mmol/L (136-145)
[2024-10-18 14:28] VITALS: BMI 23.8
[2024-10-18 15:34] LABS: Anion Gap 13 mmol/L (10-20); BUN (Urea Nitrogen) 21 mg/dL (8.4-25.7); Calc. Creatinine Clearance 104 mL/min (70-130); Calcium 8.2 mg/dL (7.8-10.44); Carbon Dioxide 16 mmol/L (23-31); Chloride 108 mmol/L (98-107); Estimated GFR 100; Glucose 99 mg/dL (80-115); Potassium 4.5 mmol/L (3.5-5.1); Sodium 132 mmol/L (136-145)
[2024-10-18] MEDS: Sodium Bicarbonate 150 MEQ in Sodium Chloride 0.45% 1,000 ML IV SCH (18:31)
[2024-10-18 19:18] LABS: Anion Gap 11 mmol/L (10-20); BUN (Urea Nitrogen) 21 mg/dL (8.4-25.7); Calc. Creatinine Clearance 104 mL/min (70-130); Calcium 8.1 mg/dL (7.8-10.44); Carbon Dioxide 18 mmol/L (23-31); Chloride 107 mmol/L (98-107); Estimated GFR 100; Glucose 165 mg/dL (80-115); Potassium 4.1 mmol/L (3.5-5.1); Sodium 132 mmol/L (136-145)
[2024-10-18] MEDS: Mirtazapine 15 MG TAB PO SCH (21:04)
[2024-10-19 05:56] LABS: #Basophils 0.04 10x3/uL (0.0-0.2); %Basophils 0.6 % (0.0-1.0); %Eosinophils 8.4 % (0.0-10.0); %Lymphocytes 11.6 % (21.0-51.0); %Monocytes 7.5 % (0.0-10.0); %Neutrophils 71.6 % (42.0-75.0); Hematocrit 28.9 % (42.0-52.0); Hemoglobin 9.6 g/dL (14.0-18.0); Mean Corpuscular HGB CONC 33.2 g/dL (32.0-36.0); Mean Corpuscular Hemoglobin 28.4 pg (27.0-31.0); Mean Corpuscular Volume 85.5 fL (78.0-98.0); Mean Platelet Volume 8.8 fL (7.4-10.4); Platelet Count 251 10x3/uL (130-400); RBC Distribution Width 16.3 % (11.5-14.5); Red Blood Cell (RBC) Count 3.38 mill/uL (4.70-6.10)
[2024-10-19 06:18] LABS: Anion Gap 11 mmol/L (10-20); BUN (Urea Nitrogen) 16 mg/dL (8.4-25.7); Calc. Creatinine Clearance 133 mL/min (70-130); Calcium 8.4 mg/dL (7.8-10.44); Carbon Dioxide 21 mmol/L (23-31); Chloride 107 mmol/L (98-107); Estimated GFR 106; Glucose 77 mg/dL (80-115); Sodium 135 mmol/L (136-145)
[2024-10-19 06:19] LABS: CRP,High Sensitivity (Inhouse) 15.22 mg/dL (< or = 0.5)
[2024-10-19] MEDS: Thiamine 100 MG TAB PO SCH (08:22)
[2024-10-19] MEDS: Pantoprazole DR 40 MG TAB PO SCH (08:22)
[2024-10-19] MEDS: Multivit, Therapeutic 1 TAB PO SCH (08:22)
[2024-10-19] MEDS: Divalproex Sodium 250 MG ER.TAB PO SCH (08:23)
[2024-10-19 14:06] LABS: Hematocrit 29.7 % (42.0-52.0); Hemoglobin 9.7 g/dL (14.0-18.0)
[2024-10-20 06:15] LABS: #Basophils 0.04 10x3/uL (0.0-0.2); %Basophils 0.6 % (0.0-1.0); %Eosinophils 16.2 % (0.0-10.0); %Lymphocytes 11.5 % (21.0-51.0); %Monocytes 6.8 % (0.0-10.0); %Neutrophils 64.6 % (42.0-75.0); Hematocrit 28.4 % (42.0-52.0); Hemoglobin 9.4 g/dL (14.0-18.0); Mean Corpuscular HGB CONC 33.1 g/dL (32.0-36.0); Mean Corpuscular Hemoglobin 29.1 pg (27.0-31.0); Mean Corpuscular Volume 87.9 fL (78.0-98.0); Mean Platelet Volume 8.7 fL (7.4-10.4); Platelet Count 245 10x3/uL (130-400); RBC Distribution Width 16.4 % (11.5-14.5); Red Blood Cell (RBC) Count 3.23 mill/uL (4.70-6.10)
[2024-10-20 06:52] LABS: ALT (SGPT) 23 U/L (8-55); AST (SGOT) 39 U/L (5-34); Albumin 2.9 g/dL (3.4-4.8); Alkaline Phosphatase 57 U/L (40-110); Anion Gap 11 mmol/L (10-20); BUN (Urea Nitrogen) 13 mg/dL (8.4-25.7); Bilirubin, Total 0.3 mg/dL (0.2-1.2); Calc. Creatinine Clearance 145 mL/min (70-130); Calcium 8.6 mg/dL (7.8-10.44); Carbon Dioxide 24 mmol/L (23-31); Chloride 107 mmol/L (98-107); Estimated GFR 110; Globulin 3.1 g/dL (2.4-3.5); Glucose 72 mg/dL (80-115); Potassium 3.9 mmol/L (3.5-5.1); Sodium 138 mmol/L (136-145)
[2024-10-20 11:51] VITALS: BP 153/72; TEMP 98
== END 2024-10-20 15:17 | DRG 872 ==
LOC: SUATTDRO 17:22 → ERS 17:22 → CCU 20:39 → IMCU/EMU 10-18 07:13 → SURG A 10-18 14:55
PROVIDERS: ADMIT Family Medicine; ATTEND Internal Medicine
PROC: 3E033XZ Introduction of Vasopressor into Peripheral Vein, Percutaneous Approach (ICD-10-PCS; principal; 2024-10-17)
PROC: 3E03329 Introduction of Other Anti-infective into Peripheral Vein, Percutaneous Approach (ICD-10-PCS; 2024-10-17)
DX: A41.9 Sepsis, unspecified organism (principal); E87.1 Hypo-osmolality and hyponatremia; E87.20 Acidosis, unspecified; F03.92 Unspecified dementia, unspecified severity, with psychotic disturbance; D63.1 Anemia in chronic kidney disease; K21.9 Gastro-esophageal reflux disease without esophagitis; I12.9 Hypertensive chronic kidney disease with stage 1 through stage 4 chronic kidney disease, or unspecified chronic kidney disease; Z66 Do not resuscitate; F25.9 Schizoaffective disorder, unspecified; K62.89 Other specified diseases of anus and rectum; N18.1 Chronic kidney disease, stage 1; Z79.899 Other long term (current) drug therapy; Z91.81 History of falling
CPT/HCPCS: 36415; 71045; 74018; 74177; 80048; 80053; 82274; 82533; 83605; 84443; 84484; 85025; 85610; 85730; 86141; 86850; 86900; 86901; 87040; 87324; 87449; 87505; 93005; 94760; 97139; J2543; J3370; J3490; J7030; Q9967

== ENCOUNTER 2025-06-18 12:14 | Inpatient (IN) | payer MEDICARE, MEDICAID ==
[2025-06-18 13:35] LABS: Bacteria/HPF None Seen HPF (None Seen); CAUTI Indications for Culture Alt mental st,lethar; Glucose, Urine (Dipstick) Normal (Negative); Leukocyte 25 Leu/uL (Negative); Protein, Urine (Dipstick) Negative (Neg-Trace); RBC/HPF 0-3 HPF (0-3); Specific Gravity, Urine 1.011 (1.002-1.036)
[2025-06-18 13:43] LABS: Urine Culture Reflex No No
[2025-06-18 14:30] LABS: #Basophils 0.03 10x3/uL (0.0-0.2); #Eosinophils 0.79 10x3/uL (0.0-0.7); #Monocytes 0.38 10x3/uL (0.11-0.59); #Neutrophils 4.61 10x3/uL (1.40-6.50); %Basophils 0.5 % (0.0-1.0); %Eosinophils 12.3 % (0.0-10.0); %Lymphocytes 8.9 % (21.0-51.0); %Monocytes 5.9 % (0.0-10.0); %Neutrophils 72.1 % (42.0-75.0); Hematocrit 33.3 % (42.0-52.0); Hemoglobin 11.6 g/dL (14.0-18.0); Mean Corpuscular Hemoglobin 29.9 pg (27.0-31.0); Mean Corpuscular Volume 85.8 fL (78.0-98.0); Platelet Count 271 10x3/uL (130-400); Red Blood Cell (RBC) Count 3.88 mill/uL (4.70-6.10); White Blood Cell (WBC) Count 6.40 10x3/uL (4.8-10.8)
[2025-06-18 14:51] LABS: ALT (SGPT) 15 U/L (Less than 45); AST (SGOT) 19 U/L (11-34); Albumin 4.1 g/dL (3.1-4.5); Alkaline Phosphatase 82 U/L (40-110); Anion Gap 14 mmol/L (10-20); BUN (Urea Nitrogen) 12 mg/dL (8.4-25.7); Bilirubin, Total 0.3 mg/dL (0.3-1.2); Calc. Creatinine Clearance 0 mL/min (70-130); Calcium 9.3 mg/dL (7.8-10.44); Carbon Dioxide 22 mmol/L (23-31); Chloride 93 mmol/L (98-107); Globulin 2.8 g/dL (2.4-3.5); Glucose 85 mg/dL (80-115); Potassium 4.7 mmol/L (3.5-5.1); Sodium 124 mmol/L (136-145)
[2025-06-18] MEDS ORDERED: Ondansetron PF 4 MG/2 ML Vial IVP PRN (16:25)
[2025-06-18] MEDS ORDERED: Acetaminophen 325 MG TAB PO PRN (16:25)
[2025-06-18] MEDS ORDERED: PALIPERIDONE PALMITATE 117 MG/0.75 ML IM SCH (18:30)
[2025-06-18] MEDS ORDERED: Famotidine 20 MG TAB PO SCH (21:00)
[2025-06-18] MEDS: Mirtazapine 15 MG TAB PO SCH (21:11)
[2025-06-19 01:33] LABS: Anion Gap 12 mmol/L (10-20); BUN (Urea Nitrogen) 15 mg/dL (8.4-25.7); Calc. Creatinine Clearance 0 mL/min (70-130); Calcium 8.9 mg/dL (7.8-10.44); Carbon Dioxide 22 mmol/L (23-31); Chloride 96 mmol/L (98-107); Glucose 121 mg/dL (80-115); Potassium 4.1 mmol/L (3.5-5.1); Sodium 126 mmol/L (136-145)
[2025-06-19 01:34] LABS: Osmolality, Serum 269 mOsm/kg (280-301)
[2025-06-19] MEDS ORDERED: Pantoprazole 40 MG DR.TAB PO SCH (09:00)
[2025-06-19] MEDS: Lisinopril 5 MG TAB PO SCH (09:36)
[2025-06-19] MEDS: Thiamine 100 MG TAB PO SCH (09:36)
[2025-06-19] MEDS: Pantoprazole 40 MG DR.TAB PO SCH (09:38)
[2025-06-19] MEDS: Divalproex Sodium 250 MG ER.TAB PO SCH (09:38)
[2025-06-19 09:44] LABS: Osmolality, Urine 385 mOsm/kg (50-1200)
[2025-06-19 10:01] LABS: Anion Gap 13 mmol/L (10-20); BUN (Urea Nitrogen) 14 mg/dL (8.4-25.7); Calc. Creatinine Clearance 137 mL/min (70-130); Calcium 8.7 mg/dL (7.8-10.44); Carbon Dioxide 18 mmol/L (23-31); Chloride 99 mmol/L (98-107); Glucose 75 mg/dL (80-115); Potassium 4.6 mmol/L (3.5-5.1); Sodium 125 mmol/L (136-145)
[2025-06-19 10:09] LABS: #Basophils 0.03 10x3/uL (0.0-0.2); #Eosinophils 0.71 10x3/uL (0.0-0.7); #Monocytes 0.40 10x3/uL (0.11-0.59); #Neutrophils 4.67 10x3/uL (1.40-6.50); %Basophils 0.5 % (0.0-1.0); %Eosinophils 10.9 % (0.0-10.0); %Lymphocytes 9.6 % (21.0-51.0); %Monocytes 6.2 % (0.0-10.0); %Neutrophils 71.9 % (42.0-75.0); Hematocrit 32.5 % (42.0-52.0); Hemoglobin 11.6 g/dL (14.0-18.0); Mean Corpuscular Hemoglobin 30.3 pg (27.0-31.0); Mean Corpuscular Volume 84.9 fL (78.0-98.0); Platelet Count 232 10x3/uL (130-400); Red Blood Cell (RBC) Count 3.83 mill/uL (4.70-6.10); White Blood Cell (WBC) Count 6.49 10x3/uL (4.8-10.8)
[2025-06-19 17:26] LABS: Anion Gap 11 mmol/L (10-20); BUN (Urea Nitrogen) 17 mg/dL (8.4-25.7); Calc. Creatinine Clearance 119 mL/min (70-130); Calcium 8.8 mg/dL (7.8-10.44); Carbon Dioxide 22 mmol/L (23-31); Chloride 99 mmol/L (98-107); Glucose 85 mg/dL (80-115); Potassium 4.6 mmol/L (3.5-5.1); Sodium 127 mmol/L (136-145)
[2025-06-19] MEDS: Heparin 5,000 UNITS/ML VIAL SC SCH (21:52)
[2025-06-20 05:49] LABS: Anion Gap 13 mmol/L (10-20); BUN (Urea Nitrogen) 14 mg/dL (8.4-25.7); Calc. Creatinine Clearance 143 mL/min (70-130); Calcium 9.0 mg/dL (7.8-10.44); Carbon Dioxide 20 mmol/L (23-31); Chloride 97 mmol/L (98-107); Glucose 75 mg/dL (80-115); Magnesium 1.8 mg/dL (1.6-2.6); Potassium 4.2 mmol/L (3.5-5.1); Sodium 126 mmol/L (136-145)
[2025-06-20 15:24] LABS: Anion Gap 14 mmol/L (10-20); BUN (Urea Nitrogen) 15 mg/dL (8.4-25.7); Calc. Creatinine Clearance 135 mL/min (70-130); Calcium 8.8 mg/dL (7.8-10.44); Carbon Dioxide 20 mmol/L (23-31); Chloride 96 mmol/L (98-107); Glucose 110 mg/dL (80-115); Potassium 4.4 mmol/L (3.5-5.1); Sodium 126 mmol/L (136-145)
[2025-06-21 05:47] LABS: Anion Gap 13 mmol/L (10-20); BUN (Urea Nitrogen) 15 mg/dL (8.4-25.7); Calc. Creatinine Clearance 123 mL/min (70-130); Calcium 9.2 mg/dL (7.8-10.44); Carbon Dioxide 24 mmol/L (23-31); Chloride 96 mmol/L (98-107); Glucose 75 mg/dL (80-115); Magnesium 1.9 mg/dL (1.6-2.6); Potassium 4.4 mmol/L (3.5-5.1); Sodium 129 mmol/L (136-145)
[2025-06-22 03:40] LABS: #Basophils 0.03 10x3/uL (0.0-0.2); #Eosinophils 1.06 10x3/uL (0.0-0.7); #Monocytes 0.50 10x3/uL (0.11-0.59); #Neutrophils 6.94 10x3/uL (1.40-6.50); %Basophils 0.3 % (0.0-1.0); %Eosinophils 11.4 % (0.0-10.0); %Lymphocytes 8.4 % (21.0-51.0); %Monocytes 5.4 % (0.0-10.0); %Neutrophils 74.3 % (42.0-75.0); Hematocrit 33.5 % (42.0-52.0); Hemoglobin 11.1 g/dL (14.0-18.0); Mean Corpuscular Hemoglobin 29.6 pg (27.0-31.0); Mean Corpuscular Volume 89.3 fL (78.0-98.0); Platelet Count 264 10x3/uL (130-400); Red Blood Cell (RBC) Count 3.75 mill/uL (4.70-6.10); White Blood Cell (WBC) Count 9.33 10x3/uL (4.8-10.8)
[2025-06-22 03:55] LABS: Anion Gap 11 mmol/L (10-20); BUN (Urea Nitrogen) 13 mg/dL (8.4-25.7); Calc. Creatinine Clearance 130 mL/min (70-130); Calcium 9.1 mg/dL (7.8-10.44); Carbon Dioxide 23 mmol/L (23-31); Chloride 96 mmol/L (98-107); Glucose 79 mg/dL (80-115); Magnesium 1.8 mg/dL (1.6-2.6); Potassium 4.1 mmol/L (3.5-5.1); Sodium 126 mmol/L (136-145)
[2025-06-22 04:22] LABS: Thyroid Stimulating Hormone 1.2793 uIU/mL (0.35-4.94); Vitamin B12 938.0 pg/mL (211-911)
[2025-06-23 07:00] LABS: Anion Gap 11 mmol/L (10-20); BUN (Urea Nitrogen) 13 mg/dL (8.4-25.7); Calc. Creatinine Clearance 123 mL/min (70-130); Calcium 9.3 mg/dL (7.8-10.44); Carbon Dioxide 26 mmol/L (23-31); Chloride 100 mmol/L (98-107); Glucose 84 mg/dL (80-115); Potassium 4.1 mmol/L (3.5-5.1); Sodium 133 mmol/L (136-145)
[2025-06-23] MEDS: Lisinopril 5 MG TAB PO SCH (13:26)
[2025-06-23 15:51] VITALS: BP 143/75; TEMP 99.1
[2025-06-24] MEDS ORDERED: Lisinopril 10 MG TAB PO SCH (09:00)
== END 2025-06-23 16:17 | DRG 643 ==
LOC: ERS 12:14 → SURG B 16:33 → OBSVTOIN 06-19 11:57
PROVIDERS: ADMIT Family Medicine; ATTEND Internal Medicine
DX: E22.2 Syndrome of inappropriate secretion of antidiuretic hormone (principal); G93.41 Metabolic encephalopathy; E87.20 Acidosis, unspecified; N18.9 Chronic kidney disease, unspecified; F03.90 Unspecified dementia, unspecified severity, without behavioral disturbance, psychotic disturbance, mood disturbance, and anxiety; R41.841 Cognitive communication deficit; Z91.81 History of falling; F31.9 Bipolar disorder, unspecified; K21.9 Gastro-esophageal reflux disease without esophagitis; D63.1 Anemia in chronic kidney disease; F20.9 Schizophrenia, unspecified; M62.50 Muscle wasting and atrophy, not elsewhere classified, unspecified site; I12.9 Hypertensive chronic kidney disease with stage 1 through stage 4 chronic kidney disease, or unspecified chronic kidney disease; Z79.899 Other long term (current) drug therapy
CPT/HCPCS: 36415; 51701; 80048; 80053; 81001; 82140; 82607; 83735; 83930; 83935; 84300; 84443; 85025; 87086; 93005; 99285; G0378; J1644; J7030